=== PATIENT | male | born 1950 | race Caucasian/White ===

== ENCOUNTER 2017-04-29 21:26 | Emergency (ER) | payer MEDICARE ==
[~2017-04-29] VITALS: Ht 172.7 cm; Wt 90.7 kg
[2017-04-29 21:55] VITALS: BP 154/76
--- NOTE | 2017-04-29 22:42 | NUR ---
RADIOLOGY AT BEDSIDE FOR FINGER XR
--- NOTE | 2017-04-29 23:12 | NUR ---
TYE HARRELL AT BEDSIDE FOR DIGITAL BLOCK
[2017-04-29] MEDS ORDERED: LIDOCAINE 1% INJ 50 ML MDV IJ ONE (23:30)
== END 2017-04-29 23:48 | disposition home or self-care (01) ==
LOC: EDSEX 21:31 → ER 21:31
DX: S62.617A Displaced fracture of proximal phalanx of left little finger, initial encounter for closed fracture (principal); F03.90 Unspecified dementia, unspecified severity, without behavioral disturbance, psychotic disturbance, mood disturbance, and anxiety; G20 Parkinson's disease; Z88.4 Allergy status to anesthetic agent; W18.39XA Other fall on same level, initial encounter; Y93.89 Activity, other specified; Y92.89 Other specified places as the place of occurrence of the external cause; Y99.8 Other external cause status
CPT/HCPCS: 26725; 73140; 99284; A4606; Z7610

== ENCOUNTER 2019-07-26 13:48 | Inpatient (IN) | payer MEDICARE, MEDICAID ==
[~2019-07-26] VITALS: Ht 172.7 cm; Wt 56.7 kg
--- NOTE | 2019-07-26 13:50 | NUR ---
PT BIBRA FROM SN[facility] C/O LOW O2 SAT AROUND 80S ON RA, PT IS AAOX0, NOTED RESPIRATORY DISTRESS ON NON REBREATHER MASK AT 15LPM, HOOKED TO MONITOR, KEPT RESTED AND COMFORTABLE, WILL CONTINUE TO MONITOR.
--- NOTE | 2019-07-26 14:02 | NUR ---
AT BEDSIDE FOR EVAL.
--- NOTE | 2019-07-26 14:11 | NUR ---
AT BEDSIDE FOR EVAL.
--- NOTE | 2019-07-26 14:37 | NUR ---
CALLED [facility] TO HURRY UP.
--- NOTE | 2019-07-26 14:40 | NUR ---
BLOOD DRAWN AND RAPID INFLUENZA OBTAINED AND SENT TO LAB.
--- NOTE | 2019-07-26 14:40 | NUR ---
ELECTRONIC COMPONENT PROCESSOR AT BEDSIDE FOR XRAY.
[2019-07-26 14:45] LABS: BASOPHILS # (AUTO) 0.1 /CMM (0.0-0.2); BASOPHILS % (AUTO) 0.6 % (0.0-2.0); EOSINOPHILS % (AUTO) 0.3 % (0.0-6.0); HEMATOCRIT 37 % (39-51); HEMOGLOBIN 12.4 g/dL (13.5-17.5); LYMPHOCYTES % (AUTO) 8.1 % (20.0-44.0); MEAN CORPUSCULAR HGB CONC 34 g/dl (31.0-36.0); MEAN CORPUSCULAR VOLUME 91 fL (80-96); MONOCYTES # (AUTO) 1.3 /CMM (0.1-1.30); MONOCYTES % (AUTO) 10.7 % (2.0-12.0); NEUTROPHILS # (AUTO) 9.5 /CMM (1.8-8.9); NEUTROPHILS % (AUTO) 80.3 % (43.0-81.0); PLATELET COUNT (AUTO) 248 /CMM (150-450); RED BLOOD CELL COUNT(AUTO) 4.05 MIL/uL (4.5-6.0); WHITE BLOOD COUNT (AUTO) 11.9 K/uL (4.3-11.0)
[2019-07-26 14:54] LABS: CALCIUM, SERUM 7.9 mg/dL (8.5-10.1); CARBON DIOXIDE 29 mmol/L (21-32); CHLORIDE 109 mmol/L (98-107); CREATININE 0.7 mg/dL (0.6-1.3); GLUCOSE 119 mg/dL (74-106); POTASSIUM 3.1 mmol/L (3.5-5.1); SODIUM SERUM 147 mmol/L (136-145); UREA NITROGEN, BLOOD 21 mg/dL (7-18)
[2019-07-26 15:00] LABS: ALANINE AMINOTRANSFERASE 27 U/L (12-78); ALBUMIN 1.9 g/dL (3.4-5.0); ALKALINE PHOSPHATASE 110 U/L (46-116); ASPARTATE AMINOTRANSFERASE 66 U/L (15-37); BILIRUBIN,DIRECT 0.2 mg/dL (0.0-0.2); BILIRUBIN,TOTAL 0.5 mg/dL (0.2-1.0); TOTAL PROTEIN, SERUM 6.6 g/dL (6.4-8.2)
--- NOTE | 2019-07-26 15:26 | NUR ---
RT AT BEDSIDE FOR ABG
[2019-07-26] MEDS ORDERED: VANCOMYCIN 1 GM in IV D5W 250 ML IV ONE (15:30)
[2019-07-26] MEDS ORDERED: PIPERACILLIN /TAZOBACTAM 3.375 G in IV D5W 50 ML IV ONE (15:30)
[2019-07-26] MEDS ORDERED: POTASSIUM CL. PREMIX PERIPHER. 200 ML ONE (15:44)
[2019-07-26] MEDS ORDERED: DIVA250T PO (15:53)
[2019-07-26] MEDS ORDERED: CEFT1VIA15 IV (15:53)
[2019-07-26] MEDS ORDERED: METO50TA16 PO (15:53)
[2019-07-26] MEDS ORDERED: LACT1CAP61 PO (15:53)
[2019-07-26] MEDS ORDERED: DOCU-141 PO (15:53)
[2019-07-26] MEDS ORDERED: CRAN3875 PO (15:53)
[2019-07-26] MEDS ORDERED: MIRABEGRON PO (15:53)
[2019-07-26] MEDS ORDERED: SENN-175 PO (15:53)
[2019-07-26] MEDS ORDERED: LISI-603 PO (15:53)
[2019-07-26] MEDS ORDERED: CRAN425C6 PO (15:53)
[2019-07-26] MEDS ORDERED: CARB1TAB21 PO (15:53)
[2019-07-26] MEDS ORDERED: AMIN887L PO (15:53)
[2019-07-26] MEDS ORDERED: ACET325C7 PO (15:53)
[2019-07-26] MEDS ORDERED: POTASSIUM CHLORIDE 20 MEQ TAB.PRT.SR PO ONE (16:00)
[2019-07-26] MEDS ORDERED: POTASSIUM CHLORIDE 10 MEQ/50 ML PREMIXED IVPB FOR PERIPHERAL LINE IV ONE (16:00)
--- NOTE | 2019-07-26 16:09 | NUR ---
CALLED [facility]SE [facility] FOR TELEBED
--- NOTE | 2019-07-26 16:25 | NUR ---
GOT BED 306-2
--- NOTE | 2019-07-26 16:40 | NUR ---
REPORT GIVEN TO JAZMINE MERRITT FOR LYDIA, WITH ONGOING POTASSIUM DRIP AND ANTIBIOTIC.
[2019-07-26] MEDS ORDERED: IV NS 0.9% 1,000 ML BAG IV ONE (17:30)
[2019-07-26 19:30] VITALS: BP 138/77
[2019-07-26 20:00] VITALS: BP 138/77
--- NOTE | 2019-07-26 20:00 | NUR ---
HEEL REDUCERMICROSYSTEMS ENGINEER NOTES RECEIVED PATIENT FROM MORNING SHIFT, ALERT AND ORIENTED X 1. OPENS EYES AND MUMBLES. BREATHING REGULAR AND UNLABORED ON NON-REBREATHER MASK AT 15L/MIN. RIGHT AND LEFT AC G20 IV LINES INTACT AND PATENT, FLUSHING WELL WITH NO BLEEDING OR S/S OF INFILTRATION NOTED. ON COLLISION MECHANIC WITH NSR AT 68bpm. NO S/S OF PAIN/DISCOMFORT OBSERVED AT THIS TIME. PLACED A CALL FOR TO NOTIFY OF PATIENT'S ADMISSION. BED LOW AND LOCKED ON SEMI FOWLERS POSITION. WILL CONTINUE TO MONITOR.
--- NOTE | 2019-07-26 20:00 | NUR ---
HEALTHCARE TRANSLATOR NOTES 1ST BAG OF POTASSIUM CHLORIDE STARTED ON LEFT AC. IV LINE PATENT AND INTACT INFUSING WELL. NO S/S OF PAIN/DISCOMFORT SEEN AT THIS TIME. WILL CONTINUE TO MONITOR.
--- NOTE | 2019-07-26 20:30 | NUR ---
DONKEY DOCTOR NOTES BODY ASSESSMENT DONE, SEEN WITH SACRAL REDNESS. PHOTO TAKEN ATTACHED TO CHART. FOUND A NOTE FROM ER MD THAT [facility] ACCEPTED PATIENT FOR ADMISSION. CALLED [facility] AND SAID THAT WILL ADMIT THE PATIENT. MADE AWARE AND REPORTED PATIENT'S SPO2 OF 88-90% ON NON-REBREATHER ORDERED STAT ABG. WILL CONTINUE TO MONITOR.
--- NOTE | 2019-07-26 21:00 | NUR ---
DIGITAL HARDWARE DESIGN ENGINEER NOTES 2ND BAG OF POTASSIUM CHLORIDE STARTED ON LEFT AC. NO S/S OF PAIN/DISCOMFORT OR DRUG ADVERSE REACTION SEEN AT THIS TIME. WILL CONTINUE TO MONITOR.
[2019-07-26] MEDS ORDERED: IV 1/2NS 1000 ML 1,000 ML IV PRN (21:03)
[2019-07-26] MEDS ORDERED: ENOXAPARIN SODIUM 30 MG/0.3 ML DISP.SYRIN SQ SCH (21:30)
[2019-07-26] MEDS ORDERED: ACETAMINOPHEN 325 MG TABLET PO PRN ×2 (21:30)
[2019-07-26] MEDS ORDERED: ONDANSETRON HCL/PF 4 MG/2 ML VIAL IVP PRN ×2 (21:30)
[2019-07-26] MEDS ORDERED: MAGNESIUM HYDROXIDE 30 ML UDC PO PRN (21:30)
[2019-07-26] MEDS ORDERED: Z GUARD REMEDY 2 OZ OINT TP PRN (21:30)
[2019-07-26] MEDS ORDERED: ZOLPIDEM TARTRATE 5 MG TABLET PO PRN (21:30)
[2019-07-26] MEDS ORDERED: MAG HYDROX/AL HYDROX/SIMETH 30 ML UDC PO PRN (21:30)
[2019-07-26] MEDS ORDERED: HYDROCODONE/APAP 5/325MG 1 EACH TABLET PO PRN (21:30)
[2019-07-26] MEDS: SENNOSIDES 8.6 MG TABLET PO SCH (22:00)
--- NOTE | 2019-07-26 22:20 | NUR ---
FRONT LINE SUPERVISOR NOTES DUE [place] NOT GIVEN, PATIENT REMAINED ALERT AND ORIENTED X 1. UNABLE TO ASSESS SWALLOWING ABILITY. NOTIFIED ON BEDSIDE.
--- NOTE | 2019-07-26 22:30 | NUR ---
INTEGRATION TECHNICIAN NOTES SEEN AND EXAMINED BY , ADMISSION ORDERS IN.
[2019-07-26] MEDS: IV NS 0.9% 1,000 ML IV PRN (22:43)
[2019-07-26] MEDS ORDERED: ZOSYN IVPB 3.375 G in IV D5W 50ml IV SCH (23:00)
[2019-07-26] MEDS: ALBUTEROL HALF STRENGTH 1.25 MG/3 ML VIAL.NEB NEB SCH (23:15)
[2019-07-26] MEDS ORDERED: PIPERACILLIN /TAZOBACTAM 3.375 G VIAL IV ONE (23:21)
[2019-07-27] VITALS (7 sets, daily range): BP systolic 126–152; BP diastolic 69–86
[2019-07-27] MEDS ORDERED: PIPERACILLIN /TAZOBACTAM 2.255 G in IV D5W 50 ML IV SCH ×2
[2019-07-27] MEDS: ALBUTEROL HALF STRENGTH 1.25 MG/3 ML VIAL.NEB NEB SCH ×6 (02:52→23:26)
[2019-07-27] MEDS ORDERED: VANCOMYCIN 1 GM in IV D5W 250ml IV ONE (04:00)
--- NOTE | 2019-07-27 06:25 | NUR ---
SENIOR LEAD JAVA DEVELOPER CLOSING NOTES PATIENT IN BED ALERT AND ORIENTED X 1. OPENS EYES AND MUMBLES. BREATHING REGULAR AND UNLABORED ON NON-REBREATHER MASK AT 15L/MIN. RIGHT AND LEFT AC G20 IV LINES PATENT AND INFUSING WELL. MAINTAINED ON SCRUB TECHNICIAN WITH NSR AT 76bpm. LATEST SPO2 97%. NO S/S OF PAIN/DISCOMFORT OBSERVED AT THIS TIME. BED LOW AND LOCKED ON SEMI FOWLERS POSITION. WILL ENDORSE TO MORNING SHIFT FOR LYDIA.
[2019-07-27 06:56] LABS: CALCIUM, SERUM 7.9 mg/dL (8.5-10.1); CREATININE 0.9 mg/dL (0.6-1.3); MAGNESIUM 2.2 mg/dL (1.8-2.4); PHOSPHORUS 3.4 mg/dL (2.5-4.9); POTASSIUM 3.7 mmol/L (3.5-5.1)
[2019-07-27 07:30] LABS: BASOPHILS % (AUTO) 0.1 % (0.0-2.0); EOSINOPHILS % (AUTO) 0.3 % (0.0-6.0); HEMATOCRIT 39 % (39-51); HEMOGLOBIN 12.8 g/dL (13.5-17.5); LYMPHOCYTES # (AUTO) 1.2 /CMM (0.8-4.8); LYMPHOCYTES % (AUTO) 7.8 % (20.0-44.0); MEAN CORPUSCULAR HGB CONC 33 g/dl (31.0-36.0); MEAN CORPUSCULAR VOLUME 91 fL (80-96); MONOCYTES # (AUTO) 1.6 /CMM (0.1-1.30); MONOCYTES % (AUTO) 10.5 % (2.0-12.0); NEUTROPHILS # (AUTO) 12.5 /CMM (1.8-8.9); NEUTROPHILS % (AUTO) 81.3 % (43.0-81.0); PLATELET COUNT (AUTO) 256 /CMM (150-450); RED BLOOD CELL COUNT(AUTO) 4.24 MIL/uL (4.5-6.0); WHITE BLOOD COUNT (AUTO) 15.3 K/uL (4.3-11.0)
[2019-07-27] MEDS: DIVALPROEX SODIUM 250 MG TABLET.DR PO SCH ×3 (08:00→21:00)
--- NOTE | 2019-07-27 08:00 | NUR ---
RN NOTES RECEIVED PATIENT IN THE BED A/O X1, ON NON VENTURE MASK, OPEN EYES WHEN CALLED NAM OR TOUCHED, PATIENT TELE SR-78, KEEP HOB ELEVATED. PATIENT NPO FOR ASPIRATION PRECAUTION, PATIENT INCONTINENT USING DIAPER, ASSIST TURN AND REPOSTION Q 2 HR, SEE PATIENT VIA HOSPITALIST Dr BETANCUR, NO NEW ORDER AT THIS TIME, CALL LIGHT WITHIN TO REACH, SAFETY PRECAUTION MAINTAINED ALL THE TIME.
[2019-07-27] MEDS: LISINOPRIL (20MG) 20 MG TABLET PO SCH (09:00)
[2019-07-27] MEDS: DOCUSATE SODIUM 100 MG CAPSULE PO SCH ×2 (09:00→16:25)
[2019-07-27] MEDS: METOPROLOL TARTRATE 50 MG TABLET PO SCH (09:00)
[2019-07-27] MEDS: CARBIDOPA/LEVODOPA 25/100 MG 1 UDTAB PO SCH ×4 (09:00→21:00)
[2019-07-27] MEDS: PANTOPRAZOLE 40 MG VIAL IV SCH (09:42)
[2019-07-27] MEDS: PIPERACILLIN /TAZOBACTAM 3.375 G in IV D5W 100 ML IV SCH ×2 (09:43→16:41)
--- NOTE | 2019-07-27 09:47 | NUR ---
rn notes patient with RT at this time, also take ABG per MD order. infusing zosyn 25 mg/ml extended dose .
[2019-07-27 09:49] LABS: ABG BASE EXCESS 2.5 mmol/L; ABG OXYGEN SATURATION 93.7 % (92.0-98.5); ABG PH 7.501 (7.350-7.450); ABG PO2 65.2 mmHg (75.0-100.0); AaDO2 614.8 mmHg; COHb 0.8 % (0.5-1.5); MetHb 0.3 % (0.0-1.5); O2Hb 92.7 % (94.0-97.0); SITE, ABG Right Radial
[2019-07-27 09:49] LABS: ABG BASE EXCESS 5.3 mmol/L; ABG OXYGEN SATURATION 87.2 % (92.0-98.5); ABG PCO2 33.7 mmHg (35.0-45.0); ABG PH 7.533 (7.350-7.450); ABG PO2 49.1 mmHg (75.0-100.0); AaDO2 630.2 mmHg; COHb 0.3 % (0.5-1.5); MetHb 0.3 % (0.0-1.5); O2Hb 86.7 % (94.0-97.0); SITE, ABG Right Radial
--- NOTE | 2019-07-27 10:05 | NUR ---
rn notes Get ABG result [id number],PH-7.52,PCO-30.7, HCO#24.6 result notified fruit grading supervisor Dr Johnson. Seen patient via Dr Johnson waiting for orders.
--- NOTE | 2019-07-27 10:33 | NUR ---
WOUND CARE CONSULT: SEEN PATIENT AT BEDSIDE, PATIENT PRESENTS WITH INCONTINENCE AND IMMOBILITY, NOTED WITH SACRAL SCARRING, PRESENT ON ADMISSION,CURRENT RAY SCALE IS 12,SKIN PROTECTION AND CARE RECOMMENDATION MADE, DISCUSSED WITH NURSING STAFF , WITH AGREED WITH PLAN OF CARE,ISOFLEX ROLANDO BED WILL BE PLACED, WILL SEE PRN
[2019-07-27] MEDS: ACETYLCYSTEINE 10% SOLN 400 MG/4 ML VIAL NEB SCH ×3 (11:30→23:26)
[2019-07-27] MEDS ORDERED: MYRBETRIQ 50 MG PO ONE (12:00)
--- NOTE | 2019-07-27 12:05 | NUR ---
RN NOTES GET ORDER CASSANDRA CONSULTANT Dr QUILES BREATHING TREATMENT, KEEP HOB ELEVATE 35 DEGREE, HIGH FLOW O2 SET UP BY RT ALL THE TIME.
[2019-07-27] MEDS: VANCOMYCIN 1 GM in IV D5W 250 ML IV SCH ×2 (12:33→23:38)
[2019-07-27] MEDS ORDERED: FEE PK DOSING 1 MIN EA MC ONE (13:42)
[2019-07-27] MEDS: IV NS 0.9% 1,000 ML IV PRN (17:19)
--- NOTE | 2019-07-27 18:00 | NUR ---
rn notes PATIENT OPEN EYES WHEN TOUCHED OT CALLING NAME, ON NON -VENTURE MASK 10L, KEEP HOB ELEVATED 35 DEGREE, VIA Dr QUILES ORDER, AND KEEP HIGH FLOW OF O2. HELD SCHEDULED PO MEDICATION, ASSIST PATIENT TURN AND REPOSTION Q 2 HR, . INFUSING NS AT 75 ML/HR INTACT. ENDORSED ONCOMING NURSE FOLLOW PLAN OF CARE.
--- NOTE | 2019-07-27 19:00 | NUR ---
RN medsurg opening notes Pt is resting in bed comfortably. Pt is alert and orientedX1. Respiration is normal in non rebreather 15 L. O2 sat is 98%. No SOB. No S/S of distress noted. IV sites at RAC# 20 is clean, intact, patent and IV sites at LAC# 20 is clean, intact, patent and infusing well NS @ 75 ml/hr. Safety precautions is maintained. Bed at low position, brakes locked, side rails upX3 and call light is within reach. Will continue to monitor.
--- NOTE | 2019-07-27 19:55 | NUR ---
RN medsurg notes Per RT Ray. Pt is on simple mask with 10 L. O2 sat is 97%. No SOB. No S/S of distress noted. Will continue to monitor.
--- NOTE | 2019-07-27 20:35 | NUR ---
RN medsurg notes Pt's temp is 100.4. Informed and called Dr. Melton to get an order. Received order for tylenol supp. 650 Q 4HR prn. Order carried out. Will continue to monitor.
[2019-07-27] MEDS ORDERED: ACETAMINOPHEN 650 MG/SUPP.RECT RC PRN (21:00)
[2019-07-27] MEDS: ENOXAPARIN SODIUM 40 MG/0.4 ML DISP.SYRIN SQ SCH (21:13)
--- NOTE | 2019-07-27 21:14 | NUR ---
RN medsurg notes Pt's temp 100.4. Administered tylenol supp. 650 mg as ordered for fever. Cooling measured is applied. Will continue to monitor.
[2019-07-27] MEDS: SENNOSIDES 8.6 MG TABLET PO SCH (21:27)
--- NOTE | 2019-07-27 22:00 | NUR ---
RN medsurbossman notes Pt's temp is 99.5. Cooling measured is applied. Will continue to monitor.
[2019-07-27] MEDS ORDERED: ENOXAPARIN SODIUM 40 MG/0.4 ML DISP.SYRIN SQ SCH (22:58)
--- NOTE | 2019-07-27 23:15 | NUR ---
RN medsurg notes Informed Dr. Melton about Pt's swallow eval and didn't pass nursing swallow eval. MD is infomed and aware. Will continue to monitor.
--- NOTE | 2019-07-27 23:26 | NUR ---
RT NOTE PT NOTED TO HAVE LARGE AMOUNT OF RED BLOODY SECRETIONS. JAZMINE WEBSTER AND CHARGE NURSE AWARE. WILL CONTINUE TO MONITOR.
--- NOTE | 2019-07-27 23:44 | NUR ---
RN jett notes Pt's temp is 99.3. Will continue to monitor.
--- NOTE | 2019-07-28 | NUR ---
JAZMINE caceres notes Received order to hold lovenox. Order carried out. Charge nurse is aware and informed. Will continue to monitor. Addendum: 07/28/19 at 0325 by MARCO BRYANT RN Received order at 0005
--- NOTE | 2019-07-28 00:02 | NUR ---
RN medsurg notes Informed Dr. Melton about Pt. RT noted blood when suctioned Pt. Pt is also on lovenox 40 mg. No new order received. Will continue to monitor.
[2019-07-28] MEDS: PIPERACILLIN /TAZOBACTAM 3.375 G in IV D5W 100 ML IV SCH ×3 (00:32→16:07)
[2019-07-28] MEDS: ALBUTEROL HALF STRENGTH 1.25 MG/3 ML VIAL.NEB NEB SCH ×6 (04:16→22:47)
--- NOTE | 2019-07-28 06:44 | NUR ---
RN medsurg closing notes Pt is resting in bed comfortably. Respiration is normal in non rebreather 15 L NC. No SOB. No S/S of distress noted. IV sites at RAC# 20 is clean, intact and patent. IV sites LAc# 20 is clean, intact and patent. Kept Pt NPO until swallow eval. VS is stable. Afebrile. Kept Pt clean, dry, and comfortable. Turned and repositioned Q 2HR. Safety precautions is maintained. Bed at low position, brakes locked, side rails upX3 and call light is within reach. HOB elevated. Will endorse to morning nurse for LYDIA.
[2019-07-28 06:49] LABS: BASOPHILS # (AUTO) 0.1 /CMM (0.0-0.2); BASOPHILS % (AUTO) 0.3 % (0.0-2.0); EOSINOPHILS % (AUTO) 0.2 % (0.0-6.0); HEMATOCRIT 38 % (39-51); HEMOGLOBIN 12.7 g/dL (13.5-17.5); LYMPHOCYTES # (AUTO) 1.3 /CMM (0.8-4.8); LYMPHOCYTES % (AUTO) 6.7 % (20.0-44.0); MEAN CORPUSCULAR HGB CONC 33 g/dl (31.0-36.0); MEAN CORPUSCULAR VOLUME 92 fL (80-96); MONOCYTES # (AUTO) 1.6 /CMM (0.1-1.30); MONOCYTES % (AUTO) 8.4 % (2.0-12.0); NEUTROPHILS # (AUTO) 16.3 /CMM (1.8-8.9); NEUTROPHILS % (AUTO) 84.4 % (43.0-81.0); PLATELET COUNT (AUTO) 279 /CMM (150-450); RED BLOOD CELL COUNT(AUTO) 4.17 MIL/uL (4.5-6.0); WHITE BLOOD COUNT (AUTO) 19.3 K/uL (4.3-11.0)
[2019-07-28 07:12] LABS: LYMPHOCYTES % (MANUAL) 5 % (16-48); MONOCYTES % (MANUAL) 5 % (0-11.0); NEUTROPHILS % (MANUAL) 90 (42-76)
--- NOTE | 2019-07-28 07:18 | NUR ---
INITIAL Pt is resting in bed comfortably. Pt is alert and orientedX1. Respiration is normal in non rebreather 15 L. O2 sat is 100%. No SOB. No S/S of distress noted. IV sites at RAC# 20 is clean, intact, patent and IV sites at LAC# 20 is clean, intact, patent and infusing well NS @ 75 ml/hr. Safety precautions is maintained. Bed at low position, brakes locked, side rails upX3 and call light is within reach. Will continue to monitor.
[2019-07-28 07:23] LABS: CALCIUM, SERUM 8.4 mg/dL (8.5-10.1); POTASSIUM 4.1 mmol/L (3.5-5.1)
[2019-07-28 08:00] VITALS: BP 155/72
[2019-07-28] MEDS: ACETYLCYSTEINE 10% SOLN 400 MG/4 ML VIAL NEB SCH ×3 (08:21→22:46)
[2019-07-28] MEDS: MYRBETRIQ 50 MG PO SCH (08:47)
[2019-07-28] MEDS: DIVALPROEX SODIUM 250 MG TABLET.DR PO SCH ×2 (08:47→21:00)
[2019-07-28] MEDS: LISINOPRIL (20MG) 20 MG TABLET PO SCH (08:48)
[2019-07-28] MEDS: CARBIDOPA/LEVODOPA 25/100 MG 1 UDTAB PO SCH ×4 (08:48→21:00)
[2019-07-28] MEDS: METOPROLOL TARTRATE 50 MG TABLET PO SCH (08:48)
[2019-07-28] MEDS: DOCUSATE SODIUM 100 MG CAPSULE PO SCH ×2 (08:49→17:00)
[2019-07-28] MEDS: PANTOPRAZOLE 40 MG VIAL IV SCH (08:50)
[2019-07-28 09:12] LABS: ABG BASE EXCESS 2.4 mmol/L; ABG OXYGEN SATURATION 92.2 % (92.0-98.5); ABG PCO2 30.7 mmHg (35.0-45.0); ABG PH 7.521 (7.350-7.450); ABG PO2 60.5 mmHg (75.0-100.0); AaDO2 477.7 mmHg; COHb 0.3 % (0.5-1.5); MetHb 0.4 % (0.0-1.5); O2Hb 91.6 % (94.0-97.0); SITE, ABG Left Radial; VENT MODE, BG NON REBREATHER
--- NOTE | 2019-07-28 10:07 | NUR ---
SWALLOW SCREEN PT UNABLE TO DO SWALLOW SCREEN DESATURATES TO 87% AND LOWER CALLED [facility] SPOKE WITH GINNA BETANCUR EXPLAINING SITUATION THAT PT UNABLE TO DO SWALLOW SCREEN PA ACKNOWLEDGED EXCHANGE.
[2019-07-28] MEDS: VANCOMYCIN 1 GM in IV D5W 250 ML IV SCH (12:14)
[2019-07-28 16:00] VITALS: BP 146/90
[2019-07-28] MEDS: IV D5/0.45 NACL 1,000 ML IV PRN (16:07)
--- NOTE | 2019-07-28 19:06 | NUR ---
closing Pt is resting in bed comfortably. Respiration is normal in non rebreather 9 L simple mask. No SOB. No S/S of distress noted. IV sites at RAC# 20 is clean, intact and patent. IV sites LAc# 20 is clean, intact and patent. Kept Pt NPO until swallow eval. VS is stable. Afebrile. Kept Pt clean, dry, and comfortable. Turned and repositioned Q 2HR. Safety precautions is maintained. Bed at low position, brakes locked, side rails upX3 and call light is within reach. HOB elevated. Will endorse to pm shift rn for continuity of care. pt unable to o swallow screen today on d5 1/2 ns at 75 mls/hr
[2019-07-28 20:00] VITALS: BP 156/84
--- NOTE | 2019-07-28 20:07 | NUR ---
MS RN NOTES RECEIVED PATIENT AWAKE IN BED RECEIVING BREATHING TX. CALL LIGHT WITHIN REACH. NO FACIAL GRIMACING OR GROANING TO INDICATE PAIN OR DISCOMFORT. PERIPHERAL LINE INTACT AND PATENT. ROOM FREE OF CLUTTER AND BELONGINGS KEPT NEAR BEDSIDE. BED IN LOW LOCK SETTING WITH BED ALARM ON AND FUNCTIONING PROPERLY. WILL CONTINUE TO MONITOR
[2019-07-28] MEDS: VANCOMYCIN 0.75 GM in IV D5W 250 ML IV SCH (20:46)
[2019-07-28] MEDS: ENOXAPARIN SODIUM 40 MG/0.4 ML DISP.SYRIN SQ SCH (21:00)
[2019-07-28] MEDS: SENNOSIDES 8.6 MG TABLET PO SCH (21:13)
--- NOTE | 2019-07-28 21:13 | NUR ---
ALL HS MEDS HELD D/T PT LETHARGIC. JADEN HELD D/T BLOODY SECTIONS WHEN ORAL SUCTIONING.
[2019-07-29] MEDS: PIPERACILLIN /TAZOBACTAM 3.375 G in IV D5W 100 ML IV SCH ×3 (00:56→15:08)
[2019-07-29] MEDS: ALBUTEROL HALF STRENGTH 1.25 MG/3 ML VIAL.NEB NEB SCH ×6 (03:15→23:36)
[2019-07-29] MEDS: VANCOMYCIN 0.75 GM in IV D5W 250 ML IV SCH ×3 (05:16→20:15)
--- NOTE | 2019-07-29 06:44 | NUR ---
MS RN NOTES PATIENT ASLEEP IN BED WITH NO DISTRESS NOTED. PATIENT BREATHING EASILY ON 9L O2 VIA FACE MASK. SPO2 93%, VITALS WNL. HOB MAINTAINED AT 35 DEGREES. RAC PIV INFILTRATED AND REPLACED WITH LFA #24 GAUGE AND TOLERATED WELL. NO ACTIVE BLEEDING NOTED. ORAL SUCTION NEEDED AND NOTED WITH MIN-MODERATE AMT BLOOD TINGED SECRETIONS. IV ATBS GIVEN ORDERED WITH NO ASE. BED IN LOW LOCK SETTING WITH BED ALARM ON AND FUNCTIONING PROPERLY. ALL BELONGINGS KEPT NEAR BEDSIDE. WILL ENDORSE TO ONCOMING SHIFT.
[2019-07-29 06:48] LABS: BASOPHILS % (AUTO) 0.1 % (0.0-2.0); EOSINOPHILS % (AUTO) 0.3 % (0.0-6.0); HEMATOCRIT 36 % (39-51); HEMOGLOBIN 11.8 g/dL (13.5-17.5); LYMPHOCYTES % (AUTO) 4.6 % (20.0-44.0); MEAN CORPUSCULAR HGB CONC 33 g/dl (31.0-36.0); MEAN CORPUSCULAR VOLUME 92 fL (80-96); MONOCYTES # (AUTO) 1.5 /CMM (0.1-1.30); NEUTROPHILS # (AUTO) 18.6 /CMM (1.8-8.9); PLATELET COUNT (AUTO) 266 /CMM (150-450); RED BLOOD CELL COUNT(AUTO) 3.88 MIL/uL (4.5-6.0); WHITE BLOOD COUNT (AUTO) 21.1 K/uL (4.3-11.0)
[2019-07-29 07:10] LABS: CALCIUM, SERUM 7.8 mg/dL (8.5-10.1); CREATININE 0.8 mg/dL (0.6-1.3); POTASSIUM 2.9 mmol/L (3.5-5.1)
--- NOTE | 2019-07-29 07:18 | NUR ---
MS RN NOTES RECEIVED PATIENT ASLEEP IN BED WITH NO DISTRESS NOTED AT THIS TIME. ON 9L O2 VIA FACE MASK. SPO2 93%. HOB MAINTAINED AT 35 DEGREES. IV FLUIDS ON LAC #20 WITH D5 1/2 NS RUNNING @75ML/HR AND LFA #24 GAUGE, SL. PATENT AND INTACT. SAFETY MEASURES IN PLACE, BED IN LOW LOCK SETTING WITH BED ALARM ON. CALL LIGHT WITHIN REACH. WILL CONTINUE TO MONITOR.
[2019-07-29 08:00] VITALS: BP 142/76
[2019-07-29] MEDS: POTASSIUM CL. PREMIX PERIPHER. 50 ML IV SCH ×5 (08:23→13:04)
[2019-07-29] MEDS: PANTOPRAZOLE 40 MG VIAL IV SCH (08:24)
[2019-07-29] MEDS: ACETYLCYSTEINE 10% SOLN 400 MG/4 ML VIAL NEB SCH ×3 (08:24→23:37)
[2019-07-29] MEDS: CARBIDOPA/LEVODOPA 25/100 MG 1 UDTAB PO SCH ×4 (09:00→21:00)
[2019-07-29] MEDS: LISINOPRIL (20MG) 20 MG TABLET PO SCH (09:00)
[2019-07-29] MEDS: DIVALPROEX SODIUM 250 MG TABLET.DR PO SCH ×2 (09:00→21:00)
[2019-07-29] MEDS: MYRBETRIQ 50 MG PO SCH (09:00)
[2019-07-29] MEDS: DOCUSATE SODIUM 100 MG CAPSULE PO SCH ×2 (09:00→17:00)
[2019-07-29] MEDS: METOPROLOL TARTRATE 50 MG TABLET PO SCH (09:00)
--- NOTE | 2019-07-29 09:15 | NUR ---
RN NOTES STILL HOLD PO MED, PATIENT IS LETHARGIC. UNABLE TO SWALLOW. MD AWARE. WILL CONTINUE TO MONITOR.
[2019-07-29 13:10] LABS: APPEARANCE,URINE SL CLOUDY (CLEAR); BILIRUBIN,URINE SMALL (NEGATIVE); BLOOD, URINE LARGE Ery/uL (NEGATIVE); COLOR,URINE DARK YELLO (YELLOW); KETONES,URINE NEGATIVE (NEGATIVE); LEUKOCYTE ESTERASE ,URINE NEGATIVE (NEGATIVE); NITRITE, URINE NEGATIVE (NEGATIVE); PH,URINE 5.5 (5.0-8.0); PROTEIN,URINE 30 mg/dl (NEGATIVE); UGLUCOSE NEGATIVE (NEGATIVE)
[2019-07-29 13:43] LABS: BACTERIA,URINE None seen /HPF (None Seen); RBC,URINE 51-80 /HPF (0-2); SQUAMOUS EPITHELIAL CELL,UR Few /HPF (None Seen); WBC,URINE 0-2 /HPF (0-3)
[2019-07-29] MEDS: IV D5/0.45 NACL 1,000 ML IV PRN (14:45)
[2019-07-29 15:57] VITALS: BP 134/76
--- NOTE | 2019-07-29 18:30 | NUR ---
MS RN NOTES PATIENT IN BED RESTING COMFORTABLY. WITH NO DISTRESS NOTED THROUGHOUT THE SHIFT. ON 6L O2 VIA NC. SPO2 98%. HOB MAINTAINED AT 35 DEGREES. IV FLUIDS ON LAC #20 WITH D5 1/2 NS RUNNING @75ML/HR AND LFA #24 GAUGE, SL. PATENT AND INTACT. SAFETY MEASURES IN PLACE, BED IN LOW LOCK SETTING WITH BED ALARM ON. CALL LIGHT WITHIN REACH. WILL ENDORSE TO FRAUD INVESTIGATOR NURSE FOR LYDIA.
[2019-07-29 20:00] VITALS: BP 155/74
--- NOTE | 2019-07-29 20:03 | NUR ---
MS RN NOTES PATIENT RECEIVED IN BED, EASILY AWAKEN BY TOUCH. PATIENT NON-VERBAL. PATIENT ON NASAL CANNULA, TOLERATING 6 LITERS, NO SIGNS OF RESPIRATORY DISTRESS, NO SIGNS OF SHORTNESS OF BREATH, WITH EVEN NON-LABORED BREATHING. PATIENT SKIN DRY, CLEAN, AND WARM. IV ACCESS IN PLACE, INTACT, AND PATENT, RUNNING D5 1/2 NS AT 75 ml/hr. PROVIDED COMFORT MEASURES TO PATIENT. SAFETY PRECAUTIONS IN PLACE WITH BED LOCKED, BED ALARM ON, BILATERAL SIDE RAILS UP, BED IN THE LOWEST POSITION, AND CALL LIGHT WITHIN EASY REACH OF PATIENT. WILL CONTINUE TO MONITOR.
[2019-07-29] MEDS: ENOXAPARIN SODIUM 40 MG/0.4 ML DISP.SYRIN SQ SCH (21:08)
--- NOTE | 2019-07-29 21:15 | NUR ---
MS RN NOTES HELD ALL PO MEDICATIONS DUE TO PATIENT UNABLE TO SWALLOW. WILL CONTINUE TO MONITOR PATIENT.
[2019-07-29] MEDS: SENNOSIDES 8.6 MG TABLET PO SCH (22:00)
[2019-07-30] MEDS: PIPERACILLIN /TAZOBACTAM 3.375 G in IV D5W 100 ML IV SCH ×3 (00:06→16:06)
[2019-07-30] MEDS: VANCOMYCIN 0.75 GM in IV D5W 250 ML IV SCH ×3 (03:04→20:16)
[2019-07-30] MEDS: ALBUTEROL HALF STRENGTH 1.25 MG/3 ML VIAL.NEB NEB SCH ×6 (03:35→22:45)
--- NOTE | 2019-07-30 06:41 | NUR ---
MS RN NOTES PATIENT IN BED, NON-VERBAL, EASILY AWAKEN BY LIGHT TOUCH. PATIENT ON SIMPLE FACE MASK, 10 LITERS, TOLERATING SETTINGS WELL WITH O2 SATURATION OF 93%. PATIENT PRESENTS EVEN NON-LABORED BREATHING, WITH NON-PRODUCTIVE COUGH. PATIENT SKIN KEPT CLEAN, DRY AND IS INTACT. IV ACCESS IN PLACE AND INTACT, RIGHT HAND 20 GAUGE SL, AND LAC 20 GAUGE RUNNING 75 ml/hr d5 1/2 NS. PROVIDED COMFORT MEASURES. PATIENT PRESENTS NO PAIN OR DISCOMFORT AT THIS TIME. SAFETY PRECAUTIONS IN PLACE WITH BED IN THE LOWEST POSITION, BED LOCKED, BED ALARM ON, BILATERAL SIDE RAILS UP, AND CALL LIGHT WITHIN EASY REACH. WILL ENDORSE LYDIA TO UPCOMING AM NURSE.
[2019-07-30 06:42] LABS: BASOPHILS # (AUTO) 0.1 /CMM (0.0-0.2); BASOPHILS % (AUTO) 0.4 % (0.0-2.0); EOSINOPHILS % (AUTO) 0.9 % (0.0-6.0); HEMATOCRIT 31 % (39-51); HEMOGLOBIN 10.4 g/dL (13.5-17.5); LYMPHOCYTES # (AUTO) 1.3 /CMM (0.8-4.8); LYMPHOCYTES % (AUTO) 9.6 % (20.0-44.0); MEAN CORPUSCULAR HGB CONC 33 g/dl (31.0-36.0); MEAN CORPUSCULAR VOLUME 92 fL (80-96); MONOCYTES % (AUTO) 7.3 % (2.0-12.0); NEUTROPHILS # (AUTO) 11.4 /CMM (1.8-8.9); NEUTROPHILS % (AUTO) 81.8 % (43.0-81.0); PLATELET COUNT (AUTO) 263 /CMM (150-450)
[2019-07-30 06:58] LABS: BILIRUBIN,TOTAL 1.9 mg/dL (0.2-1.0); CALCIUM, SERUM 7.2 mg/dL (8.5-10.1); CREATININE 0.8 mg/dL (0.6-1.3); MAGNESIUM 2.1 mg/dL (1.8-2.4); PHOSPHORUS 2.4 mg/dL (2.5-4.9); TOTAL PROTEIN, SERUM 5.7 g/dL (6.4-8.2)
[2019-07-30 07:03] LABS: ALBUMIN 1.3 g/dL (3.4-5.0)
--- NOTE | 2019-07-30 07:44 | NUR ---
MS RN OPENING NOTES RECEIVED PATIENT IN BED, ASLEEP. PATIENT ON OXYGEN VIA SIMPLE MASK AT 10 L. SATURATING IN THE LOW 90S. RT JUST CAME TO SEE THE PATIENT. NO SIGNS OF DISTRESS AT THIS TIME. NO SIGNS OF PAIN SUCH FACIAL GRIMACING OR MOANING. LAC GAUGE # 20 PRESENT AND INTACT. R HAND GAUGE # 20 PRESENT AND FLUSHING WELL. SAFETY PRECAUTIONS IN PLACE: BED IN LOW POSITION AND LOCKED, RAILS UP X 2, CALL LIGHT WITHIN REACH. WILL CONTINUE TO MONITOR PATIENT.
[2019-07-30 08:00] VITALS: BP 162/72
[2019-07-30] MEDS: POTASSIUM CL. PREMIX PERIPHER. 50 ML IV SCH ×5 (08:06→13:45)
[2019-07-30] MEDS: ACETYLCYSTEINE 10% SOLN 400 MG/4 ML VIAL NEB SCH ×3 (08:13→22:45)
[2019-07-30] MEDS: DOCUSATE SODIUM 100 MG CAPSULE PO SCH ×2 (09:00→16:27)
[2019-07-30] MEDS: PANTOPRAZOLE 40 MG VIAL IV SCH (09:00)
[2019-07-30] MEDS: METOPROLOL TARTRATE 50 MG TABLET PO SCH (09:00)
[2019-07-30] MEDS: MYRBETRIQ 50 MG PO SCH (09:00)
[2019-07-30] MEDS: CARBIDOPA/LEVODOPA 25/100 MG 1 UDTAB PO SCH ×4 (09:00→21:00)
[2019-07-30] MEDS: DIVALPROEX SODIUM 250 MG TABLET.DR PO SCH ×2 (09:00→21:00)
[2019-07-30] MEDS: LISINOPRIL (20MG) 20 MG TABLET PO SCH (09:00)
--- NOTE | 2019-07-30 09:50 | NUR ---
MS RN NOTES AT THIS TIME PATIENT UNABLE TO SWALLOW WELL MEDS WELL. PATIENT IS NOT FULLY ALERT/ NOT ABLE TO COMMUNICATE CLEARLY. CHARGE NURSE AND MD NOTIFIED AND AWARE. MD CALLED PATIENT'S SON REGARDING THE MATTER AND POSSIBLE INITIATION OF TUBE FEEDING. WILL F/U AND CONTINUE TO MONITOR PATIENT.
[2019-07-30] MEDS ORDERED: K PHOS NEUTRAL 250 MG TABLET PO ONE (11:30)
--- NOTE | 2019-07-30 18:49 | NUR ---
MS RN CLOSING NOTES PATIENT IN BED, AWAKE BUT DOES NOT RESPOND TO ANY QUESTIONS. PATIENT ON OXYGEN VIA SIMPLE MASK AT 10 L. RT TRIED TO TITRATE DOWN BUT O2 DROPPING. SATURATING NOW AT 98%. NO SIGNS OF DISTRESS AT THIS TIME. NO SIGNS OF PAIN SUCH FACIAL GRIMACING OR MOANING. LAC GAUGE # 20 PRESENT AND INTACT INFUSING NS AT 75MLS/HR. R HAND GAUGE # 20 PRESENT AND FLUSHING WELL. BREATHING TREATMENT PROVIDED BY RT DURING THE DAY. PATIENT CLEAN AND SKIN TAKEN CARE OF. SAFETY PRECAUTIONS IN PLACE: BED IN LOW POSITION AND LOCKED, RAILS UP X 2, HOB ELEVATED AT 30 DEGREES, CALL LIGHT WITHIN REACH. WILL ENDORSE TO PRIVACY DIRECTOR NURSE.
--- NOTE | 2019-07-30 19:42 | NUR ---
MS RN NOTES PATIENT RECEIVED IN BED, RESTING COMFORTABLY, NO PAIN OR DISCOMFORT PRESENT, NO MOANING, GRUNTING OR FACIAL GRIMACE. PATIENT IS AWAKE, NON-VERBAL. PATIENT ON SIMPLE FACE MASK, 10 LITERS, TOLERATING SETTING WITH O2 SATURATION OF 97%. IV ACCESS IN PLACE, PATENT AND INTACT, ON LAC 20 GAUGE, AND RIGHT HAND, SL 20 GAUGE. HOB IN SEMI-FOWLERS POSITION. SAFETY PRECAUTIONS IN PLACE WITH BED IN THE LOWEST POSITION, BED LOCKED, BED ALARM ON, BILATERAL SIDE RAILS UP, AND CALL LIGHT WITHIN EASY REACH. WILL CONTINUE TO MONITOR PATIENT.
[2019-07-30 20:00] VITALS: BP 155/80
[2019-07-30] MEDS: ENOXAPARIN SODIUM 40 MG/0.4 ML DISP.SYRIN SQ SCH (21:57)
[2019-07-30] MEDS: SENNOSIDES 8.6 MG TABLET PO SCH (21:59)
--- NOTE | 2019-07-30 22:02 | NUR ---
MS RN NOTES PATIENT AT THIS TIME IS UNABLE TO SWALLOW PO MEDICATION. HELD ALL PO MEDICATIONS, MD AWARE AND CHARGE NURSE MADE AWARE OF NON-ADMINISTERING PO MEDICATIONS. WILL CONTINUE TO MONITOR PATIENT.
[2019-07-31 00:01] VITALS: BP 138/82
[2019-07-31] MEDS: PIPERACILLIN /TAZOBACTAM 3.375 G in IV D5W 100 ML IV SCH ×3 (00:09→16:37)
[2019-07-31] MEDS: ALBUTEROL HALF STRENGTH 1.25 MG/3 ML VIAL.NEB NEB SCH ×6 (03:38→23:25)
[2019-07-31] MEDS: VANCOMYCIN 0.75 GM in IV D5W 250 ML IV SCH ×2 (04:06→12:18)
--- NOTE | 2019-07-31 06:16 | NUR ---
MS RN NOTES PATIENT IN BED SLEEPING, EASILY AWAKEN BY NAME AND LIGHT TOUCH AND NON-VERBAL. PATIENT ON SIMPLE FACE MASK, TOLERATING 10 LITERS, O2 SATURATION AT 98%. PATIENT PRESENTS NO SIGNS OF RESPIRATORY DISTRESS, NO SIGNS OF SOB, EVEN AND NON-LABORED BREATHING. PATIENT SKIN KEPT CLEAN AND DRY. IV IN PLACE, PATENT AND DRY. PATIENT PRESENT NO PAIN OR DISCOMFORT. ALL PATIENT'S NEEDS MET AND PROVIDED COMFORT MEASURES TO THE PATIENT. SAFETY PRECAUTIONS IN PLACE WITH BED IN THE LOWEST POSITION, BILATERAL SIDE RAILS UP, BED LOCKED, BED ALARM ON AND CALL LIGHT WITHIN EASY REACH. WILL ENDORSE LYDIA TO UPCOMING AM NURSE.
--- NOTE | 2019-07-31 07:20 | NUR ---
MS RN OPENING NOTES RECEIVED PATIENT IN BED, ASLEEP. PATIENT ON OXYGEN VIA SIMPLE MASK AT 10 L. SATURATING IN THE HIGH 90S. NO SIGNS OF ACUTE DISTRESS AT THIS TIME. NO SIGNS OF PAIN SUCH FACIAL GRIMACING OR MOANING. LAC GAUGE # 20 PRESENT AND INTACT. R HAND GAUGE # 20 PRESENT AND INFUSING NS AT 75 MLS/HR. SAFETY PRECAUTIONS IN PLACE: BED IN LOW POSITION AND LOCKED, RAILS UP X 2, HOB ELEVATED AT 45%, CALL LIGHT WITHIN REACH. WILL CONTINUE TO MONITOR PATIENT.
[2019-07-31 07:25] LABS: BASOPHILS % (AUTO) 0.3 % (0.0-2.0); EOSINOPHILS % (AUTO) 0.6 % (0.0-6.0); HEMATOCRIT 32 % (39-51); HEMOGLOBIN 10.8 g/dL (13.5-17.5); LYMPHOCYTES # (AUTO) 1.2 /CMM (0.8-4.8); LYMPHOCYTES % (AUTO) 7.7 % (20.0-44.0); MEAN CORPUSCULAR HGB CONC 33 g/dl (31.0-36.0); MEAN CORPUSCULAR VOLUME 91 fL (80-96); MONOCYTES # (AUTO) 1.2 /CMM (0.1-1.30); NEUTROPHILS # (AUTO) 12.5 /CMM (1.8-8.9); NEUTROPHILS % (AUTO) 83.4 % (43.0-81.0); PLATELET COUNT (AUTO) 254 /CMM (150-450); RED BLOOD CELL COUNT(AUTO) 3.56 MIL/uL (4.5-6.0)
[2019-07-31] MEDS: ACETYLCYSTEINE 10% SOLN 400 MG/4 ML VIAL NEB SCH ×3 (07:29→23:25)
[2019-07-31 07:52] LABS: CALCIUM, SERUM 7.5 mg/dL (8.5-10.1); CREATININE 0.9 mg/dL (0.6-1.3); PHOSPHORUS 2.5 mg/dL (2.5-4.9); POTASSIUM 3.1 mmol/L (3.5-5.1)
[2019-07-31 08:00] VITALS: BP 141/78
[2019-07-31] MEDS: DIVALPROEX SODIUM 250 MG TABLET.DR PO SCH ×2 (08:25→22:25)
[2019-07-31] MEDS: PANTOPRAZOLE 40 MG VIAL IV SCH (08:25)
[2019-07-31] MEDS: MYRBETRIQ 50 MG PO SCH (08:25)
[2019-07-31] MEDS: DOCUSATE SODIUM 100 MG CAPSULE PO SCH ×2 (08:25→16:38)
[2019-07-31] MEDS: METOPROLOL TARTRATE 50 MG TABLET PO SCH (08:25)
[2019-07-31] MEDS: LISINOPRIL (20MG) 20 MG TABLET PO SCH (08:26)
[2019-07-31] MEDS: CARBIDOPA/LEVODOPA 25/100 MG 1 UDTAB PO SCH ×4 (08:26→22:25)
--- NOTE | 2019-07-31 08:26 | NUR ---
MS RN NOTES PATIENT UNABLE TO SWALLOW PO MEDICATION OR ANY FOOD. HELD ALL PO MEDICATIONS, MD AWARE OF NON-ADMINISTERING PO MEDICATIONS. WILL CONTINUE TO MONITOR PATIENT.
[2019-07-31] MEDS: POTASSIUM CL. PREMIX PERIPHER. 50 ML IV SCH ×4 (11:14→15:47)
[2019-07-31] MEDS ORDERED: POTASSIUM CL. PREMIX PERIPHER. 50 ML IV SCH (12:00)
[2019-07-31] MEDS: IV D5/0.45 NACL 1,000 ML IV PRN (14:25)
[2019-07-31 16:00] VITALS: BP 166/71
--- NOTE | 2019-07-31 18:42 | NUR ---
MS RN CLOSING NOTES PATIENT IN BED, AWAKE, CONFUSED, AT TIMES AGGRESSIVE WHEN BEING CHANGED AND CLEANED. PATIENT ON OXYGEN VIA SIMPLE MASK AT 7 L. RT TITRATED PATIENT FROM 10 TO 7 L. SATURATING IN THE HIGH 90S. NO SIGNS OF ACUTE DISTRESS AT THIS TIME. NO SIGNS OF PAIN SUCH FACIAL GRIMACING OR MOANING. LAC GAUGE # 20 PRESENT AND INTACT. R HAND GAUGE # 20 PRESENT AND INFUSING NS AT 75 MLS/HR. SAFETY PRECAUTIONS REMAIN IN PLACE: BED IN LOW POSITION AND LOCKED, RAILS UP X 2, HOB ELEVATED AT 45%, CALL LIGHT WITHIN REACH. WILL ENDORSE TO SEWER LINE REPAIRER NURSE.
--- NOTE | 2019-07-31 19:40 | NUR ---
RN OPENING NOTES RECEIVED REPORT FROM Bianka MITCHELL RN. FOUND Pt ASLEEP IN BED, RESPIRATIONS EVEN AND UNLABORED WITH EQUAL CHEST RISE AND FALL. PER MURALI RN Pt IS A/OX0; IS CONFUSED AND AWAKE FROM TIME TO TIME BUT DOES NOT FOLLOW COMMANDS. PER KENDRA, Pt WAS TOO LETHARGIC AND WAS UNABLE TO DO HER OWN SWALLOW EVAL. WILL TRY TO FOLLOW UP. ON TELE MONITOR, WITH TELE READING SR 79. IV ACCESS ON R HAND #20G @TKO & LAC #18G IVF D51/2NS @75ML/HR, INFUSING WELL. SAFETY MEASURES IN PLACE. BED LOW, LOCKED, HOB ELEVATED, SIDE RAILS UP, CALL LIGHT AND BEDSIDE TABLE WITHIN REACH. BED ALARM ON. WILL CONTINUE TO MONITOR Pt's CONDITION AND SAFETY THROUGHOUT THE NIGHT.
[2019-07-31 20:00] VITALS: BP 136/79
[2019-07-31] MEDS: ENOXAPARIN SODIUM 40 MG/0.4 ML DISP.SYRIN SQ SCH (22:05)
[2019-07-31] MEDS: SENNOSIDES 8.6 MG TABLET PO SCH (22:25)
--- NOTE | 2019-07-31 22:25 | NUR ---
RN NOTES Pt IS MORE AWAKE NOW THAN BEFORE PER DAYSHIFT RN REPORT. PER DAYSHIFT RN KENDRA, Pt WAS TOO LETHARGIC TO SEE IF HE CAN SWALLOW FINE WITH WATER. SINCE Pt WAS AWAKE NOW, I ADMINISTERED THICKENED WATER TO Pt AND HE WAS ABLE TO TOLERATE WELL WITH NO COUGHING. WILL ADMINISTER MEDS CRUSHED WITH THICKENER.
[2019-08-01] VITALS (7 sets, daily range): BP systolic 124–159; BP diastolic 66–89
[2019-08-01] MEDS: PIPERACILLIN /TAZOBACTAM 3.375 G in IV D5W 100 ML IV SCH ×3 (00:13→16:30)
[2019-08-01] MEDS: VANCOMYCIN 1 GM in IV D5W 250 ML IV SCH ×2 (00:14→13:19)
[2019-08-01] MEDS: ALBUTEROL HALF STRENGTH 1.25 MG/3 ML VIAL.NEB NEB SCH ×6 (03:54→23:46)
[2019-08-01 07:05] LABS: CALCIUM, SERUM 7.6 mg/dL (8.5-10.1); CREATININE 0.8 mg/dL (0.6-1.3); POTASSIUM 3.3 mmol/L (3.5-5.1)
[2019-08-01] MEDS: ACETYLCYSTEINE 10% SOLN 400 MG/4 ML VIAL NEB SCH ×3 (08:03→23:46)
--- NOTE | 2019-08-01 08:10 | NUR ---
ms rn received on bed, awake, on o2 mask, saturating 93%,no distress noted, respirations, nonlabored, no s/s of pain, son on bedside, all needs attended.
--- NOTE | 2019-08-01 08:19 | NUR ---
PLACED ON AEROSOL MASK @ 2LPM O2 FLOW DUE TO MOUTH BREATING. PT SPO2 93 T0 99% Addendum: 08/01/19 at 0820 by ROBERT JHA RT Amended: Links added.
--- NOTE | 2019-08-01 08:25 | NUR ---
RN CLOSING NOTES NO SIGNIFICANT CHANGES IN Pt's CONDITION. Pt IS RESTING COMFORTABLY IN BED. NO S/S OF ACUTE DISTRESS OR SOB NOTED. ALL NEEDS MET AND ATTENDED TO. SAFETY MEASURES IN PLACE. ENDORSED TO DAYSHIFT RN FOR Pt's LYDIA.
--- NOTE | 2019-08-01 09:15 | NUR ---
ms rn swallow eval done, waiting for result.
[2019-08-01] MEDS: CARBIDOPA/LEVODOPA 25/100 MG 1 UDTAB PO SCH ×4 (09:42→21:50)
[2019-08-01] MEDS: PANTOPRAZOLE 40 MG VIAL IV SCH (09:42)
[2019-08-01] MEDS: MYRBETRIQ 50 MG PO SCH (09:42)
[2019-08-01] MEDS: DIVALPROEX SODIUM 250 MG TABLET.DR PO SCH ×2 (09:42→21:50)
[2019-08-01] MEDS: DOCUSATE SODIUM 100 MG CAPSULE PO SCH ×2 (09:44→16:48)
[2019-08-01] MEDS: METOPROLOL TARTRATE 50 MG TABLET PO SCH (09:44)
[2019-08-01] MEDS: LISINOPRIL (20MG) 20 MG TABLET PO SCH (09:44)
[2019-08-01] MEDS ORDERED: POTASSIUM CHLORIDE 20 MEQ TAB.PRT.SR PO SCH (11:00)
--- NOTE | 2019-08-01 11:00 | NUR ---
ms rn patient's swallow eval did not pass, son is aware, might consider gt placement.
--- NOTE | 2019-08-01 12:00 | NUR ---
ms rn was seen by marcelino nino w/ orders made and karen montoya.
[2019-08-01] MEDS: IV D5/0.45 NACL 1,000 ML IV PRN (13:21)
--- NOTE | 2019-08-01 18:14 | NUR ---
ms rn on bed, no distress noted w/ saturation at 95%.
--- NOTE | 2019-08-01 19:40 | NUR ---
RN OPENING NOTES RECEIVED REPORT FROM DAYSHIFT JAZMINE MERRITT. FOUND Pt AWAKE, RESTING IN BED, RESPIRATIONS EVEN AND UNLABORED WITH EQUAL CHEST RISE AND FALL. Pt IS A/OX0; IS CONFUSED AND AWAKE FROM TIME TO TIME BUT DOES NOT FOLLOW COMMANDS. PER JAZMINE MERRITT, Pt FAILED SWALLOW EVAL. Pt IS ON TELE MONITOR, WITH TELE READING SR 67. IV ACCESS ON R HAND #20G & #18G IVF D51/2NS @75ML/HR, INFUSING WELL. SAFETY MEASURES IN PLACE. BED LOW, LOCKED, HOB ELEVATED, SIDE RAILS UP & BED ALARM ON. WILL CONTINUE TO MONITOR Pt's CONDITION AND SAFETY THROUGHOUT THE NIGHT.
[2019-08-01] MEDS: SENNOSIDES 8.6 MG TABLET PO SCH (21:50)
[2019-08-01] MEDS: ENOXAPARIN SODIUM 40 MG/0.4 ML DISP.SYRIN SQ SCH (21:52)
[2019-08-02] MEDS: PIPERACILLIN /TAZOBACTAM 3.375 G in IV D5W 100 ML IV SCH ×3 (00:21→15:18)
[2019-08-02 00:38] VITALS: BP 129/72
[2019-08-02] MEDS: ALBUTEROL HALF STRENGTH 1.25 MG/3 ML VIAL.NEB NEB SCH ×6 (03:52→23:56)
[2019-08-02 06:30] LABS: BASOPHILS # (AUTO) 0.1 /CMM (0.0-0.2); BASOPHILS % (AUTO) 0.5 % (0.0-2.0); EOSINOPHILS % (AUTO) 1.3 % (0.0-6.0); HEMATOCRIT 32 % (39-51); HEMOGLOBIN 10.7 g/dL (13.5-17.5); LYMPHOCYTES # (AUTO) 1.4 /CMM (0.8-4.8); LYMPHOCYTES % (AUTO) 12.5 % (20.0-44.0); MEAN CORPUSCULAR HGB CONC 34 g/dl (31.0-36.0); MEAN CORPUSCULAR VOLUME 90 fL (80-96); MONOCYTES # (AUTO) 0.9 /CMM (0.1-1.30); MONOCYTES % (AUTO) 7.9 % (2.0-12.0); NEUTROPHILS # (AUTO) 8.5 /CMM (1.8-8.9); NEUTROPHILS % (AUTO) 77.8 % (43.0-81.0); PLATELET COUNT (AUTO) 330 /CMM (150-450); RED BLOOD CELL COUNT(AUTO) 3.54 MIL/uL (4.5-6.0); WHITE BLOOD COUNT (AUTO) 10.9 K/uL (4.3-11.0)
--- NOTE | 2019-08-02 06:37 | NUR ---
RN CLOSING NOTES NO SIGNIFICANT CHANGES IN Pt's CONDITION. Pt IS RESTING COMFORTABLY IN BED. NO S/S OF ACUTE DISTRESS OR SOB NOTED. ALL NEEDS MET AND ATTENDED TO. SAFETY MEASURES IN PLACE. TELE READING SR 64. PER RT MAYUR: Pt WAS PLACED ON VENTURI MASK @6L WITH FIO2 28%. WILL ENDORSE TO DAYSHIFT RN FOR Pt's LYDIA.
[2019-08-02 06:55] LABS: CALCIUM, SERUM 7.7 mg/dL (8.5-10.1); CREATININE 0.9 mg/dL (0.6-1.3); MAGNESIUM 2.1 mg/dL (1.8-2.4); PHOSPHORUS 2.9 mg/dL (2.5-4.9); POTASSIUM 3.2 mmol/L (3.5-5.1)
--- NOTE | 2019-08-02 07:20 | NUR ---
MS RN NOTES RECEIVED PATIENT IN BED. ALERT AND ORIENTED X1. HOB ELEVATED. ON VENTURI MASK @ 6L CARISSA WELL. DENIES ANY C/O PAIN NOR DISCOMFORT AT THIS TIME. SUCTIONED PATIENT AND OBTAINED SMALL THICK SECRETIONS. IVF INFUSING WELL ORDERED WITH IV ACCESS SITE INTACT AND PATENT TO RFA AND LEFT AC. BED IN LOWEST POSITION, LOCKED. BED SIDERAILS UP X2. CALL LIGHT WITHIN REACH.
[2019-08-02] MEDS: ACETYLCYSTEINE 10% SOLN 400 MG/4 ML VIAL NEB SCH ×3 (07:52→23:56)
[2019-08-02 08:00] VITALS: BP 142/77
[2019-08-02] MEDS: PANTOPRAZOLE 40 MG VIAL IV SCH (08:47)
[2019-08-02] MEDS: CARBIDOPA/LEVODOPA 25/100 MG 1 UDTAB PO SCH ×4 (08:47→21:24)
[2019-08-02] MEDS: DOCUSATE SODIUM 100 MG CAPSULE PO SCH ×2 (08:47→16:38)
[2019-08-02] MEDS: DIVALPROEX SODIUM 250 MG TABLET.DR PO SCH ×2 (08:47→21:24)
[2019-08-02] MEDS: METOPROLOL TARTRATE 50 MG TABLET PO SCH (08:48)
[2019-08-02] MEDS: LISINOPRIL (20MG) 20 MG TABLET PO SCH (08:48)
[2019-08-02] MEDS: MYRBETRIQ 50 MG PO SCH (08:51)
[2019-08-02] MEDS: POTASSIUM CHLORIDE 20 MEQ TAB.PRT.SR PO SCH ×2 (11:18→12:25)
[2019-08-02 16:00] VITALS: BP 146/70
[2019-08-02] MEDS: IV D5/0.45 NACL 1,000 ML IV PRN (18:57)
--- NOTE | 2019-08-02 19:00 | NUR ---
MS RN NOTES PATIENT RESTING COMFORTABLY IN BED. ALERT AND ORIENTED X1. HOB ELEVATED. ON VENTURI MASK @ 6L CARISSA WELL. DENIES ANY C/O PAIN NOR DISCOMFORT AT THIS TIME. RFA # #20 INTACT INFUSING D5 1/2 NS @ 75ML/HR CARISSA WELL. LEFT AC # 18 INTACT AND PATENT SL. BED IN LOWEST POSITION, LOCKED. BED SIDERAILS UP X2. CALL LIGHT WITHIN REACH. IN NO APPARENT DISTRESS.
--- NOTE | 2019-08-02 19:36 | NUR ---
MS RN NOTES PATIENT RECEIVED IN BED, AWAKE, ALERT AND ORIENTED X 1. PATIENT ON VENTURI MASK AT 6 L, TOLERATING SETTING WITH O2 OF 94%. PATIENT PRESENTS NO SIGNS OF SOB, NO RESPIRATORY DISTRESS, AND WITH NON-LABORED BREATHING. PATIENT IV ACCESS INTACT, PATENT, AND IN PLACE, RUNNING D5 1/2 NS AT 75 mls/hr. PROVIDED COMFORT MEASURES TO THE PATIENT. SAFETY PRECAUTIONS IN PLACE WITH BED IN THE LOWEST POSITION, HOB IN SEMI-FOWLERS, BILATERAL SIDE RAILS UP, BED LOCKED, BED ALARM ON, CALL LIGHT WITHIN EASY REACH. WILL CONTINUE TO MONITOR PATIENT.
[2019-08-02 20:00] VITALS: BP 137/77
[2019-08-02] MEDS: SENNOSIDES 8.6 MG TABLET PO SCH (21:23)
[2019-08-02] MEDS: ENOXAPARIN SODIUM 40 MG/0.4 ML DISP.SYRIN SQ SCH (21:25)
[2019-08-03] MEDS: PIPERACILLIN /TAZOBACTAM 3.375 G in IV D5W 100 ML IV SCH ×3 (00:11→16:24)
[2019-08-03] MEDS: ALBUTEROL HALF STRENGTH 1.25 MG/3 ML VIAL.NEB NEB SCH ×5 (04:10→19:20)
[2019-08-03 06:52] LABS: BASOPHILS # (AUTO) 0.1 /CMM (0.0-0.2); BASOPHILS % (AUTO) 0.8 % (0.0-2.0); EOSINOPHILS % (AUTO) 1.6 % (0.0-6.0); HEMATOCRIT 38 % (39-51); HEMOGLOBIN 12.5 g/dL (13.5-17.5); LYMPHOCYTES # (AUTO) 1.5 /CMM (0.8-4.8); LYMPHOCYTES % (AUTO) 21.3 % (20.0-44.0); MEAN CORPUSCULAR HGB CONC 33 g/dl (31.0-36.0); MEAN CORPUSCULAR VOLUME 92 fL (80-96); MONOCYTES # (AUTO) 0.6 /CMM (0.1-1.30); MONOCYTES % (AUTO) 8.5 % (2.0-12.0); NEUTROPHILS # (AUTO) 4.9 /CMM (1.8-8.9); NEUTROPHILS % (AUTO) 67.8 % (43.0-81.0); PLATELET COUNT (AUTO) 321 /CMM (150-450); RED BLOOD CELL COUNT(AUTO) 4.08 MIL/uL (4.5-6.0); WHITE BLOOD COUNT (AUTO) 7.2 K/uL (4.3-11.0)
--- NOTE | 2019-08-03 06:58 | NUR ---
MS RN NOTES PATIENT IN BED, RESTING, IN SEMI-FOWLERS POSITION. PATIENT TOLERATING VENTURI MASK 6L, 97% NO SIGNS OF SOB, RESPIRATORY DISTRESS PRESENT, AND WITH EVEN NON-LABORED BREATHING. PATIENT AWAKE TO LIGHT TOUCH AND NAME, ALERT AND ORIENTED X 1. PATIENT SKIN KEPT CLEAN AND DRY. IV ACCESS IN PLACE, INTACT, AND PATENT RUNNING D5 1/2 NS AT 75 mls/hr. PROVIDED COMFORT MEASURES TO PATIENT. SAFETY PRECAUTIONS IN PLACE WITH BED IN THE LOWEST POSITION, BED LOCKED, BED ALARM ON, BILATERAL SIDE-RAILS UP, AND CALL LIGHT WITHIN EASY REACH. WILL ENDORSE LYDIA TO UPCOMING DAYSHIFT NURSE.
[2019-08-03] MEDS: ACETYLCYSTEINE 10% SOLN 400 MG/4 ML VIAL NEB SCH ×2 (07:27→15:35)
[2019-08-03 07:30] LABS: CALCIUM, SERUM 7.9 mg/dL (8.5-10.1); CREATININE 0.8 mg/dL (0.6-1.3); MAGNESIUM 2.2 mg/dL (1.8-2.4); PHOSPHORUS 2.9 mg/dL (2.5-4.9); POTASSIUM 4.6 mmol/L (3.5-5.1)
--- NOTE | 2019-08-03 07:55 | NUR ---
MS RN OPENING NOTES RECEIVED PT AWAKE IN BED IN NO CUTE SIGNS OF DISTRESS. HOB ELEVATED. ALERT BUT CONFUSED. ON VENTURI MASK AT 6LPM, TOLERATING WELL, RESPIRATIONS EVEN AND UNLABORED WITH EQUAL CHEST RISE AND FALL. PIV'S ON RFA #20G & LAC #18G, IVF OF D5 1/2NS @75ML/HR INFUSING WELL TO RFA, NO S/S OF INFILTRATIONS NOTED. SAFETY MEASURES IN PLACE: BED LOW, LOCKED WITH SIDE RAILS UP X2. BED ALARM ON. WILL CONTINUE TO MONITOR PT ACCORDINGLY.
[2019-08-03 08:00] VITALS: BP 160/81
--- NOTE | 2019-08-03 08:29 | NUR ---
RN NOTES RESPIRATORY CAME AND SUCTIONED PT AND PLACED PT ON 02 VIA N/C AT 5LPM.TOLERATING WELL WITH SP02 NOTED AT 95%. WILL CONTINUE TO MONITOR
[2019-08-03] MEDS: DIVALPROEX SODIUM 250 MG TABLET.DR PO SCH (08:31)
[2019-08-03] MEDS: PANTOPRAZOLE 40 MG VIAL IV SCH (08:31)
[2019-08-03] MEDS: METOPROLOL TARTRATE 50 MG TABLET PO SCH (08:31)
[2019-08-03] MEDS: DOCUSATE SODIUM 100 MG CAPSULE PO SCH ×2 (08:31→16:24)
[2019-08-03] MEDS: LISINOPRIL (20MG) 20 MG TABLET PO SCH (08:31)
[2019-08-03] MEDS: CARBIDOPA/LEVODOPA 25/100 MG 1 UDTAB PO SCH ×3 (08:32→16:24)
[2019-08-03] MEDS: MYRBETRIQ 50 MG PO SCH (08:34)
--- NOTE | 2019-08-03 09:41 | NUR ---
RN NOTES SWALLOW EVALUATION DONE AGAIN THIS MORNING AND PT ABLE TO TOLERATE APPLE SAUCE W/O ASPIRATION. ST PLACED PT ON PUREED DIET WITH HONEY THICK LIQUIDS CONSISTENCY. WILL CONTINUE TO MONITOR
[2019-08-03 16:19] VITALS: BP 137/78
--- NOTE | 2019-08-03 19:51 | NUR ---
RN DISCHARGED NOTES PT DISCHARGED TO [facility] AND WILL GO TO BED 3356 IN STABLE CONDITION. PT IS A/O X2 AND VERBALLY RESPONSIVE. PT NOTED WITH PERIOD OF CONFUSION AND FORGETFULNESS DURING THE DAY, REDIRECTED AND EMOTIONAL SUPPORT GIVEN. PT TOLERATED CURRENT DIET OF PUREED HONEY THICK LIQUIDS WITH NO ASPIRATION NOTED. V/S TAKEN, STABLE AND RECORDED. PHOTOS OF SKIN ISSUES TAKEN AND FILED ON CHART. BELONGINGS ACCOUNTED FOR AND SIGNED FORM. IV ACCESS ON REMOVED LFA G#18 WITH NO ACTIVE BLEEDING NOTED, DRY DRESSING APPLIED. REPORT AND DISCHARGED INSTRUCTIONS GIVEN TO [facility] RN MAMU. PT'S SON SALVADOR [place] INFORMED OF PT'S DISCHARGE TO [facility]. PT LEFT UNIT ON 02 VIA N/C @ 5LPM IN NO ACUTE SIGNS OF DISTRESS 1950 VIA YOANDY ACCOMPANIED BY 2 EMT'S. MD AND CHARGE NURSE AWARE OF DISCHARGE
== END 2019-08-03 19:50 | DRG 871 ==
LOC: ER 13:50 → TELE 16:44 → MED 07-27 12:03 → TELE 07-31 15:00 → MED 08-02 11:42
PROVIDERS: ADMIT Student in an Organized Health Care Education/Training Program; ATTEND Registered Nurse
DX: A41.9 Sepsis, unspecified organism (principal); J15.6 Pneumonia due to other Gram-negative bacteria; J96.21 Acute and chronic respiratory failure with hypoxia; E43 Unspecified severe protein-calorie malnutrition; G92 Toxic encephalopathy; N17.0 Acute kidney failure with tubular necrosis; E87.0 Hyperosmolality and hypernatremia; E87.4 Mixed disorder of acid-base balance; E86.0 Dehydration; E87.6 Hypokalemia; Z66 Do not resuscitate; R65.20 Severe sepsis without septic shock; Z79.899 Other long term (current) drug therapy; Z88.4 Allergy status to anesthetic agent; G20 Parkinson's disease; F31.9 Bipolar disorder, unspecified; F02.80 Dementia in other diseases classified elsewhere, unspecified severity, without behavioral disturbance, psychotic disturbance, mood disturbance, and anxiety; Y95 Nosocomial condition; R13.10 Dysphagia, unspecified; N32.81 Overactive bladder; N20.0 Calculus of kidney; M19.90 Unspecified osteoarthritis, unspecified site; I10 Essential (primary) hypertension; H26.9 Unspecified cataract; D64.9 Anemia, unspecified
CPT/HCPCS: 31720; 36415; 36600; 71045-TC; 80048-TC; 80053-TC; 80076-TC; 80202-TC; 81000-TC; 82803-TC; 82962-TC; 83605-TC; 83735-TC; 84100-TC; 84484-TC; 85025-TC; 85730-TC; 87040-TC; 87070-TC; 87081-TC; 87086-TC; 92526; 92611-TC; 94760-TC; 94762-TC; 94799-TC; C9113; G0378; J1650; J2543; J3370; J3480; J3490; J7030; J7050; J7060

== ENCOUNTER 2019-12-26 16:14 | Inpatient (IN) | payer MEDICARE, OTHER ==
[~2019-12-26] VITALS: Ht 152.4 cm; Wt 60.3 kg
[~2019-12-26 16:14] MED LIST: ACET325C7 PO; AMIN887L PO; CARB1TAB21 PO; CEFT1VIA15 IV; CRAN3875 PO; CRAN425C6 PO; DIVA250T PO; DOCU-141 PO; LACT1CAP61 PO; LISI-603 PO; METO50TA16 PO; MIRABEGRON PO; SENN-175 PO
[2019-12-26] MEDS ORDERED: ENOX40DI SQ (16:48)
[2019-12-26] MEDS ORDERED: ALBU2.5V38 IH (16:48)
[2019-12-26] MEDS ORDERED: CRAN3875 PO (16:48)
[2019-12-26] MEDS ORDERED: VALP250S4 PO (16:48)
[2019-12-26] MEDS ORDERED: MAGN400O6 PO (16:48)
[2019-12-26] MEDS ORDERED: ALBU2.5V13 IH (16:48)
[2019-12-26] MEDS ORDERED: HYDR-4076 PO (16:48)
[2019-12-26] MEDS ORDERED: ACETAMINOPHEN 650 MG/SUPP.RECT RC ONE ×2 (17:00→17:20)
[2019-12-26 17:16] LABS: BASOPHILS # (AUTO) 0.1 /CMM (0.0-0.2); BASOPHILS % (AUTO) 0.7 % (0.0-2.0); EOSINOPHILS % (AUTO) 0.5 % (0.0-6.0); HEMATOCRIT 42 % (39-51); HEMOGLOBIN 13.8 g/dL (13.5-17.5); LYMPHOCYTES % (AUTO) 8.2 % (20.0-44.0); MEAN CORPUSCULAR HGB CONC 33 g/dl (31.0-36.0); MEAN CORPUSCULAR VOLUME 91 fL (80-96); MONOCYTES # (AUTO) 1.3 /CMM (0.1-1.30); MONOCYTES % (AUTO) 11.4 % (2.0-12.0); NEUTROPHILS # (AUTO) 9.3 /CMM (1.8-8.9); NEUTROPHILS % (AUTO) 79.2 % (43.0-81.0); PLATELET COUNT (AUTO) 337 /CMM (150-450); WHITE BLOOD COUNT (AUTO) 11.8 K/uL (4.3-11.0)
[2019-12-26 17:26] LABS: CALCIUM, SERUM 8.5 mg/dL (8.5-10.1); CARBON DIOXIDE 29 mmol/L (21-32); CHLORIDE 101 mmol/L (98-107); CREATININE 0.9 mg/dL (0.6-1.3); GLUCOSE 131 mg/dL (74-106); POTASSIUM 4.4 mmol/L (3.5-5.1); SODIUM SERUM 136 mmol/L (136-145); UREA NITROGEN, BLOOD 21 mg/dL (7-18)
[2019-12-26] MEDS ORDERED: IV NS 0.9% 100 ML IV ONE (17:30)
--- NOTE | 2019-12-26 17:30 | NUR ---
[facility] FROM [facility]F TO ER BED 6. AAOX1. NOT IN RESP DISTRES BUT NOTED RONCHI AND CRACKLES. BROUGHT IN FOR FEVER THAT WAS NOTED @ 102.4. PER FACILITY REPORT GIVEN BY JAZMINE TOMPKINS STATEMENT DISTRIBUTION CLERK. PT WAS GIVEN TYLENOL 650MG PO X 1 @ 1510. UPON ASSESSMENT, PT WAS NOTED WITH RECTAL TEMP OF 101.1. MD WAS AT THE BEDSIDE FOR EVAL. ORDERS RECEIVED NOTED AND CARRIED OUT. IV LINE ESTABLISHED ON RFA18G, BLOOD DRAWN AND GIVEN TO FINAL ARMATURE TESTER AT BEDSIDE.
[2019-12-26 17:35] LABS: APPEARANCE,URINE Clear (CLEAR); BILIRUBIN,URINE Negative (NEGATIVE); BLOOD, URINE Trace-intact Ery/uL (NEGATIVE); COLOR,URINE Yellow (YELLOW); KETONES,URINE Trace (NEGATIVE); LEUKOCYTE ESTERASE ,URINE Trace (NEGATIVE); NITRITE, URINE Negative (NEGATIVE); PROTEIN,URINE Negative (NEGATIVE); UGLUCOSE Negative (NEGATIVE)
[2019-12-26 17:43] LABS: ALANINE AMINOTRANSFERASE 22 U/L (12-78); ALBUMIN 3.3 g/dL (3.4-5.0); ALKALINE PHOSPHATASE 90 U/L (46-116); ASPARTATE AMINOTRANSFERASE 28 U/L (15-37); BILIRUBIN,DIRECT 0.1 mg/dL (0.0-0.2); BILIRUBIN,TOTAL 0.2 mg/dL (0.2-1.0); TOTAL PROTEIN, SERUM 7.5 g/dL (6.4-8.2)
[2019-12-26 17:46] LABS: BACTERIA,URINE Few /HPF (None Seen); SQUAMOUS EPITHELIAL CELL,UR Few /HPF (None Seen)
--- NOTE | 2019-12-26 17:48 | NUR ---
PAGED NICK IRAHETA
[2019-12-26] MEDS ORDERED: VANCOMYCIN 1 GM in IV D5W 250 ML IV ONE (18:00)
[2019-12-26] MEDS ORDERED: IV NS 0.9% 1,000 ML IV ONE (18:00)
[2019-12-26] MEDS ORDERED: CEFEPIME 1 GM in IV D5W 50 ML IV ONE (18:00)
--- NOTE | 2019-12-26 20:55 | NUR ---
report given to shari frank for wan
[2019-12-26 21:05] VITALS: BP 142/63
--- NOTE | 2019-12-26 21:05 | NUR ---
LOAN REVIEW ANALYST OPENING NOTES RECEIVED PATIENT FROM ER VIA GURNEY SAFELY TRANSFERRED TO BED, AWAKE NON VERBAL , EYES OPEN, RESPONSIVE TO TACTILE STIMULI, ON 4 L VIA NC TOLERATING WELL O2 SAT 99%. NOTED WITH COUGH AND FEVER RECTAL TEMPERATURE TAKEN 101.7, COOLING MEASURES INITIATED. IV SITE TO RIGHT FA #19 G SL. ORDERS NOTED AND CARRIED OUT. BODY ASSESSMENT DONE, NO BELONGINGS PRESENT,SKIN ASSESSMENT PICTURES TAKEN, PLACED IN CHART, ORIENTED TO STAFF AND CALL LIGHT AND KEPT WITHIN REACH, ALL NEEDS ATTENDED AT THIS TIME, WILL CARRY OUR ORDERS AND GIVE TYLENOL FOR FEVER. Addendum: 12/27/19 at 0224 by CIRO HAMILTON RN ON CARDIAC TEL MONITOR SR 95
--- NOTE | 2019-12-26 21:10 | NUR ---
PT TRANSPORTED TO UNIT ON GURNEY WITH EMT AND RN AT BEDSIDE W/ ACLS PROTOCOL. NAD NOTED DURING TRANSPORT.
[2019-12-26] MEDS ORDERED: LORAZEPAM INJ 2 MG/ML VIAL IV PRN (22:30)
[2019-12-26] MEDS ORDERED: ACETAMINOPHEN 325 MG TABLET PO PRN ×2 (23:00)
[2019-12-26] MEDS ORDERED: ALBUTEROL FS 2.5 MG/3 ML VIAL.NEB NEB PRN (23:30)
[2019-12-26] MEDS: ACETAMINOPHEN 650 MG/SUPP.RECT RC PRN (23:33)
--- NOTE | 2019-12-26 23:33 | NUR ---
pattern fitter notes rectal temp taken 101.7 cooling measure initiated, ice packs rendered, room kept cool. tylenol suppository given will continue to monitor.
[2019-12-27] VITALS: BP_SYST 151; BP_SYST 166; BP_DIAS 76; BP_DIAS 78
--- NOTE | 2019-12-27 00:30 | NUR ---
NAILHEAD PUNCHER NOTES COOLING MEASURE CONTINUED REASSESSED RECTAL TEMP 100.7, DECREASING WILL CONTINUE TO MONITOR.
--- NOTE | 2019-12-27 01:00 | NUR ---
SENIOR LIVING SALES COUNSELOR NOTES RECTAL TEMP TAKEN REMAINS AT 100. CALLED AWAITING FOR CALL BACK TO NOTIFY OF TEMPERATURE, COOLING MEASURES CONTINUED,
[2019-12-27] MEDS ORDERED: CEFEPIME 1 GM in IV D5W 50 ML IV ONE (02:00)
--- NOTE | 2019-12-27 02:22 | NUR ---
CREDIT NEGOTIATOR NOTES TYLENOL EFFECTIVE RECTAL TEMP 99.1 WILL CONTINUE COOLING MEASURES.
[2019-12-27] MEDS ORDERED: CEFEPIME 1 GM VIAL ONE (02:45)
--- NOTE | 2019-12-27 03:19 | NUR ---
MMD UNIT TEACHER NOTES RECEIVED MEDICATION CEFEPIME WILL GIVE AT THIS TIME, ORDERED.
[2019-12-27 04:00] VITALS: BP 139/95
[2019-12-27 04:14] VITALS: BP 139/95
--- NOTE | 2019-12-27 06:28 | NUR ---
CUSTOMER CARE ASSISTANT CLOSING NOTES PATIENT AWAKE NON VERBAL , EYES OPEN, RESPONSIVE TO TACTILE STIMULI, ON 4 L VIA NC TOLERATING WELL O2 SAT 99%. NOTED WITH COUGH AND FEVER THROUGHOUT SHIFT RECTAL TEMPERATURE TAKEN TYLENOL EFFECTIVE COOLING MEASURES EFFECTIVE TEMP 99.1 IV SITE TO RIGHT FA #18 G SL. ORDERS NOTED AND CARRIED OUT. CALL LIGHT KEPT WITHIN REACH, , REPOSITIONED Q 2HRS, OFFLOADED HEELS, ALL NEEDS ATTENDED AT THIS TIME, WILL CONTINUE TO MONITOR , ATTEND TO NEEDS AND ENDORSE TO NEXT SHIFT, ALL DUE MEDS GIVEN ORDERED, ON CARDIAC TEL MONITOR SR 88. SUCTION EQUIPMENT SET UP IN PLACE.
[2019-12-27 06:48] LABS: CALCIUM, SERUM 8.8 mg/dL (8.5-10.1); CREATININE 0.9 mg/dL (0.6-1.3); POTASSIUM 4.3 mmol/L (3.5-5.1)
[2019-12-27 06:57] LABS: BASOPHILS % (AUTO) 0.3 % (0.0-2.0); HEMATOCRIT 41 % (39-51); HEMOGLOBIN 13.9 g/dL (13.5-17.5); LYMPHOCYTES # (AUTO) 1.6 /CMM (0.8-4.8); LYMPHOCYTES % (AUTO) 13.5 % (20.0-44.0); MEAN CORPUSCULAR HGB CONC 34 g/dl (31.0-36.0); MEAN CORPUSCULAR VOLUME 91 fL (80-96); MONOCYTES # (AUTO) 1.5 /CMM (0.1-1.30); MONOCYTES % (AUTO) 12.7 % (2.0-12.0); NEUTROPHILS # (AUTO) 8.5 /CMM (1.8-8.9); NEUTROPHILS % (AUTO) 73.5 % (43.0-81.0); PLATELET COUNT (AUTO) 284 /CMM (150-450); RED BLOOD CELL COUNT(AUTO) 4.54 MIL/uL (4.5-6.0); WHITE BLOOD COUNT (AUTO) 11.6 K/uL (4.3-11.0)
--- NOTE | 2019-12-27 07:30 | NUR ---
mariela LUCERO from [facility], provided with covid results, after verifying patient information
--- NOTE | 2019-12-27 07:43 | NUR ---
PUBLIC HEALTH PROFESSOR OPENING NOTE PATIENT IN BED RESTING COMFORTABLY. PATIENT IN NO ACUTE DISTRESS. NO SOB NOTED. PATIENT BREATHING IS EVEN AND UNLABORED. PATIENT AWAKE, EYES OPEN , NON VERBAL, AND RESPONSIVE TO TACTILE STIMULI. PATIENT ON CARDIAC MONITORING READING SINUS RHYTHM HR 93. PATIENT WITH 1:1 SITTER. PATIENT BED IS LOCKED AND IN LOWEST POSITION. CALL LIGHT WITHIN REACH. WILL CONTINUE TO MONITOR.
[2019-12-27] MEDS ORDERED: Z GUARD REMEDY 2 OZ OINT TP PRN (08:00)
--- NOTE | 2019-12-27 08:05 | NUR ---
WOUND CARE CONSULT: PT PRESENTS VERY THIN AND BONY WITH REDNESS TO TOPS OF EARS (CONTINUOUS OXYGEN IN USE), VERY BONY SACRAL AREA WITH BLANCHABLE REDNESS AND DUSKY COLOR TO FEET , PRESENT ON ADMISSION. RECOMMENDATIONS MADE FOR SKIN PROTECTION. DISCUSSED WITH NURSING STAFF. MARGAUX ISOFLEX LOW AIRLOSS BED TO BE PLACED. WILL SEE PRN. VIDALES IN AGREEMENT WITH PLAN OF CARE. Addendum: 12/27/19 at 0807 by GIL CORDON WNDNU Amended: Links added.
[2019-12-27] MEDS ORDERED: FEE PK DOSING 1 MIN EA MC ONE (08:10)
[2019-12-27] MEDS ORDERED: MAGNESIUM HYDROXIDE 30 ML UDC PO PRN (09:00)
[2019-12-27] MEDS ORDERED: ALBUTEROL FS 2.5 MG/3 ML VIAL.NEB IH PRN (09:00)
[2019-12-27] MEDS ORDERED: hydrALAZINE HCL 25 MG TABLET PO PRN (09:00)
[2019-12-27] MEDS: VANCOMYCIN 0.75 GM in IV D5W 250 ML IV SCH ×2 (09:23→20:45)
[2019-12-27] MEDS: VALPROIC ACID 250 MG/5 ML UDC PO SCH ×2 (09:27→17:13)
[2019-12-27] MEDS: METOPROLOL TARTRATE 50 MG TABLET PO SCH (09:27)
[2019-12-27] MEDS: DOCUSATE SODIUM 100 MG CAPSULE PO SCH ×2 (09:27→17:13)
[2019-12-27] MEDS: CARBIDOPA/LEVODOPA 25/100 MG 1 UDTAB PO SCH ×4 (09:27→21:00)
[2019-12-27] MEDS: LISINOPRIL (20MG) 20 MG TABLET PO SCH (09:28)
[2019-12-27] MEDS: Z GUARD REMEDY 2 OZ OINT TP SCH (09:29)
[2019-12-27] MEDS ORDERED: ALBUTEROL HALF STRENGTH 1.25 MG/3 ML VIAL.NEB NEB SCH (09:30)
[2019-12-27] MEDS: IPRATROPIUM NEB FS 0.5 MG/2.5 ML AMPUL.NEB NEB SCH ×5 (09:30→23:11)
[2019-12-27] MEDS: ENOXAPARIN SODIUM 40 MG/0.4 ML DISP.SYRIN SQ SCH (09:30)
--- NOTE | 2019-12-27 11:04 | NUR ---
B2B SALES CONSULTANT NOTE PATIENT FAILED SWALLOW EVALUATION BY SPEECH THERAPIST JANNA. PER HER RECOMMENDATIONS TO KEEP PATIENT NPO EXCEPT MEDS. SPOKE WITH DR. IRAHETA AND PER MD GUERRA TO KEEP PATIENT NPO EXCEPT MEDS. PER HE DOES NOT WANT ANY EXCESS TUBES FOR FEEDING. INFORMED MD THAT GIL HAT LACER RECOMMENDED CONDOM CATH. PER MD GUERRA FOR ORDER OF CONDOM CATH.
[2019-12-27 12:00] VITALS: BP 147/71
[2019-12-27] MEDS ORDERED: ALBUTEROL FS 2.5 MG/0.5 ML VIAL.NEB IH SCH (13:30)
[2019-12-27] MEDS ORDERED: ALBUTEROL FS 2.5 MG/3 ML VIAL.NEB NEB SCH (13:30)
[2019-12-27] MEDS: CEFEPIME 2 GM in IV D5W 100 ML IV SCH (13:54)
[2019-12-27 15:41] LABS: ABG BASE EXCESS -2.2 mmol/L; ABG OXYGEN SATURATION 93.9 % (92.0-98.5); ABG PCO2 30.6 mmHg (35.0-45.0); ABG PH 7.449 (7.350-7.450); ABG PO2 64.8 mmHg (75.0-100.0); COHb 0.1 % (0.5-1.5); MetHb 0.1 % (0.0-1.5); O2Hb 93.7 % (94.0-97.0)
--- NOTE | 2019-12-27 16:01 | NUR ---
INDUSTRIAL ECONOMICS PROFESSOR NOTE SPOKE WITH DR. IRAHETA IN THE MORNING REGARDING PATIENT CODE STATUS WITH POLST STATING DNR STATUS. PER MD FOLLOW UP WITH SON WHO IS PERSON TO NOTIFY. CALLED TO SON SALVADOR CALLOWAY TO VERIFY POLST FROM 2017 AND CONFIRM IF PATIENT IS STILL TO BE MAINTAINED DNR STATUS BASED ON POLST. PER SON SALVADOR HE STATES " YES I SIGNED OFF ON THE POLST A LONG TIME AGO, HE IS TO STAY DNR STATUS". CHARGE NURSE KARAN IS AWARE.
--- NOTE | 2019-12-27 16:05 | NUR ---
LONGWALL FOREMAN NOTE PATIENT IN BED RESTING COMFORTABLY. PATIENT IN NO ACUTE DISTRESS. NO SOB NOTED. PATIENT BREATHING IS EVEN AND UNLABORED. POLST IS IN THE CHART, MAINTAINED DNR STATUS. REPORT GIVEN TO JENS RN FOR TRANSFER OF CARE. ENDORSED ALL CARE TO JENS LUCERO FOR LYDIA.
--- NOTE | 2019-12-27 16:06 | NUR ---
DOCK OPERATOR NOTES Received Patient resting in bed. A/O x 1. VS stable with no acute distress. Breathing even and unlabored on room air with no respiratory distress. Denies pain. No signs and symptoms of pain. Condom Cath in place and patent. 18g PIV on RFA intact, patent and flushing well. Safety precautions in place. Bed locked and set to lowest position with side rails x 2 up. All needs rendered at this time. Call light within reach. Will continue to monitor.
--- NOTE | 2019-12-27 19:28 | NUR ---
TONE ARTIST APPRENTICE CLOSING NOTES Received Patient resting in bed. A/O x 1. VS stable with no acute distress. Breathing even and unlabored on room air with no respiratory distress. Denies pain. No signs and symptoms of pain. Telemonitor in place and patent reading SR with HR-71. Condom Cath in place and patent. 18g PIV on RFA intact, patent and flushing well. Safety precautions in place. Bed locked and set to lowest position with side rails x 2 up. All needs rendered at this time. Call light within reach. Will endorse plan of care to oncoming shift.
[2019-12-27 20:00] VITALS: BP 117/56
--- NOTE | 2019-12-27 20:00 | NUR ---
TELE/RN OPENING NOTES RECEIVED PATIENT IN BED, LETHARGIC ON 4 LITER OXYGEN WITH SATURATION OF 99%, PATIENT REQUIRE EXTENSIVE ASSISTANCE IN ALL ADLS. PATIENT DISORIENTED AND INCOHERENT.IN BED, WITH CONDOM CATHETER DRAINING MINIMAL URINE. ON COOLING MEASURES FOR ELEVATED TEMPERATURE, WILL MONITOR FOR ANY CHANGES.
--- NOTE | 2019-12-27 20:10 | NUR ---
TELE/BELT DRESSER MONITOR ON SINUS RYTHMN. AT 80
--- NOTE | 2019-12-27 20:30 | NUR ---
TELE/RN NOTES SR 80'S
[2019-12-27] MEDS: SENNOSIDES 8.6 MG TABLET PO SCH (22:00)
[2019-12-27] MEDS: ACETAMINOPHEN 650 MG/SUPP.RECT RC PRN (23:54)
--- NOTE | 2019-12-28 | NUR ---
TELE/RN NOTES SINUS RHYTHM 85.
[2019-12-28] MEDS: CEFEPIME 2 GM in IV D5W 100 ML IV SCH ×2 (01:00→15:48)
--- NOTE | 2019-12-28 01:08 | NUR ---
RE CHECK BODY TEMP AT 99.7 DEG F.
[2019-12-28 04:00] VITALS: BP 105/52
[2019-12-28] MEDS: IPRATROPIUM NEB FS 0.5 MG/2.5 ML AMPUL.NEB NEB SCH ×6 (05:03→23:00)
--- NOTE | 2019-12-28 05:58 | NUR ---
RECHECK BODY TEMPERATURE 98.2 DEG F.
--- NOTE | 2019-12-28 06:16 | NUR ---
304-2 tele/rn notes PATIENT SLEPT DURING THE NIGHT, ON OXYGEN VIA NC AT 4 LITER, SUCTION NEEDED, WITH BREATHING TX DONE BY RT. PATIENT LETHARGIC, MONITORED FOR CHANGES, FEVER MONITOIRNG, ASPIRATION PRECAUTION FOLLOWED. BED LOCKED, WILL ENDORSE TO AM RN FOR LYDIA. ON IV ANTIBIOTIC THERAPY.
--- NOTE | 2019-12-28 07:30 | NUR ---
TELE/RN NOTE THE PATIENT IS RECEIVED IN BED. THE PATIENT IS AWAKE. ALERT TO SELF AND VERBALLY RESPONSIVE. DENIES PAIN. RECEIVING OXYGEN AT 4L/MIN VIA NASAL CANNULA. RESPIRATION REGULAR AND UNLABORED. THE PATIENT IS IN NO APPARENT DISTRESS. EXTERNAL TELE BOX READING IS SR 81. PATIENT IS NPO EXCEPT MEDS. RFA G 18 PATENT AND SALINE LOCKED. BED LOW AND LOCKED. SIDE RAILS UP X3. CALL LIGHT WITHIN REACH. SITTER AT THE BEDSIDE. WILL CONTINUE TO MONITOR.
[2019-12-28] MEDS: VANCOMYCIN 0.75 GM in IV D5W 250 ML IV SCH ×2 (08:31→19:52)
[2019-12-28] MEDS: LISINOPRIL (20MG) 20 MG TABLET PO SCH (09:19)
[2019-12-28] MEDS: CARBIDOPA/LEVODOPA 25/100 MG 1 UDTAB PO SCH ×4 (09:19→20:10)
[2019-12-28] MEDS: DOCUSATE SODIUM 100 MG CAPSULE PO SCH ×2 (09:19→16:41)
[2019-12-28] MEDS: VALPROIC ACID 250 MG/5 ML UDC PO SCH ×2 (09:20→16:41)
[2019-12-28] MEDS: METOPROLOL TARTRATE 50 MG TABLET PO SCH (09:20)
[2019-12-28] MEDS: ENOXAPARIN SODIUM 40 MG/0.4 ML DISP.SYRIN SQ SCH (09:27)
[2019-12-28] MEDS: Z GUARD REMEDY 2 OZ OINT TP SCH (09:28)
--- NOTE | 2019-12-28 10:58 | NUR ---
TELE/RN NOTE DR IRAHETA IS MADE AWARE OF SPEECH THERAPIST`S`S REQUEST TO DO VIDEO SWALLOW. THE ORDER IS OBTAINED. NOTED AND CARRIED OUT. SPEECH THERAPIST IS MADE AWARE.
--- NOTE | 2019-12-28 11:10 | NUR ---
TELE/RN NOTE THE PATIENT HAS CONDOM CATH.
[2019-12-28 12:00] VITALS: BP 93/53
[2019-12-28 16:00] VITALS: BP 141/82
--- NOTE | 2019-12-28 18:46 | NUR ---
TELE/RN NOTE THE PATIENT ALERT AND ORIENTED X1. DENIES PAIN. RECEIVING OXYGEN AT 3L/MIN VIA NASAL CANNULA AND SATURATION IS AT 93%. RESPIRATION REGULAR AND UNLABORED. IN NO APPARENT DISTRESS. RFA G 18 PATENT AND SALINE LOCKED. BED LOW AND LOCKED. SIDE RAILS UP X3. CALL LIGHT WITHIN REACH. SITTER AT THE BEDSIDE. WILL ENDORSE TO CATH LAB TECH. Addendum: 12/28/19 at 1906 by KELTON HALL RN TELE/CRIMINAL JUSTICE SOCIAL WORKER BOX READING IS SR 75.
--- NOTE | 2019-12-28 19:22 | NUR ---
TELE/RN OPENING NOTES RECEIVED PATIENT IN BED, HOB ELEVATED, ON OXYGEN VIA NC AT 4 LITER, RESPIRATIONS EVEN AND UNLABORED, SKIN WARM TO TOUCH, WITH CONDOM CATHETER DRAINING YELLOW COLOR URINE, REQUIRE SUCTION NEEDED AND WITH RT. BED LOCKED, CALL LIGHTS WITHIN REACH. ON NPO EXCEPT MED, ON ANTIBIOTIC THERAPY AND TO FOLLOW UP ANY CHANGES, VIDEO SWALLOW ORDER FOR BEATRIZ. RECEIVED ENDORSEMENT FROM AM RN FOR LYDIA,
[2019-12-28 19:57] VITALS: BP 142/63
--- NOTE | 2019-12-28 20:10 | NUR ---
TELE/RN NOTES SR 97
[2019-12-28] MEDS: SENNOSIDES 8.6 MG TABLET PO SCH (22:00)
[2019-12-28] MEDS: ACETAMINOPHEN 650 MG/SUPP.RECT RC PRN (23:33)
--- NOTE | 2019-12-28 23:36 | NUR ---
RECEIVED PATIENT WITH ELEVATED FEVER OF 100.3, COOLING MEASURES PROVIDED AND TYLENOL SUPPOSITORY ADMINISTERED,MONITORED.
[2019-12-29] VITALS: BP 147/97
[2019-12-29] MEDS: CEFEPIME 2 GM in IV D5W 100 ML IV SCH ×2 (01:07→13:41)
[2019-12-29] MEDS ORDERED: IPRATROPIUM NEB FS 0.5 MG/2.5 ML AMPUL.NEB ONE (02:28)
[2019-12-29] MEDS: IPRATROPIUM NEB FS 0.5 MG/2.5 ML AMPUL.NEB NEB SCH ×6 (02:31→23:17)
[2019-12-29 04:00] VITALS: BP 123/81
--- NOTE | 2019-12-29 04:34 | NUR ---
MS/RN NOTES PATIENT UNABLE TO RELAX. REQUIRING NEEDED MEDICATION TO CALM HIM DOWN AFTER INTERVENTION PROVIDED, KEEP PATIENT COMFORTABLE, REPOSITIONED.
--- NOTE | 2019-12-29 05:56 | NUR ---
RECEHECKED AT 99.9 DEFGREE.
[2019-12-29 05:57] VITALS: BP 123/81
--- NOTE | 2019-12-29 06:32 | NUR ---
315-1 TELE/RN NOTES ATTENDED TO ALL NEEDS,MONITORED FOR ANY CHANGES, KEPT COOL, BELOCKED, CALL LIGHTS WITHIN REACH. WILL ENDORSE TO AM RN FOR LYDIA.
[2019-12-29 08:13] LABS: BASOPHILS % (AUTO) 0.1 % (0.0-2.0); HEMATOCRIT 43 % (39-51); HEMOGLOBIN 14.2 g/dL (13.5-17.5); LYMPHOCYTES # (AUTO) 0.7 /CMM (0.8-4.8); LYMPHOCYTES % (AUTO) 9.2 % (20.0-44.0); MEAN CORPUSCULAR HGB CONC 33 g/dl (31.0-36.0); MEAN CORPUSCULAR VOLUME 90 fL (80-96); MONOCYTES # (AUTO) 0.9 /CMM (0.1-1.30); MONOCYTES % (AUTO) 11.5 % (2.0-12.0); NEUTROPHILS # (AUTO) 6.1 /CMM (1.8-8.9); NEUTROPHILS % (AUTO) 79.2 % (43.0-81.0); PLATELET COUNT (AUTO) 256 /CMM (150-450); RED BLOOD CELL COUNT(AUTO) 4.74 MIL/uL (4.5-6.0); WHITE BLOOD COUNT (AUTO) 7.7 K/uL (4.3-11.0)
[2019-12-29 08:25] LABS: CALCIUM, SERUM 8.6 mg/dL (8.5-10.1); CREATININE 0.9 mg/dL (0.6-1.3); MAGNESIUM 2.1 mg/dL (1.8-2.4); PHOSPHORUS 2.4 mg/dL (2.5-4.9); POTASSIUM 3.6 mmol/L (3.5-5.1)
--- NOTE | 2019-12-29 09:11 | NUR ---
SEASONAL RECRUITER NOTES-- VANCO TROUGH RESULTED 12. SPOKE W/ CARRIE IN PHARMACY TO CONTINUE VANCO 0.75GM.
[2019-12-29] MEDS: VALPROIC ACID 250 MG/5 ML UDC PO SCH ×2 (09:12→16:16)
[2019-12-29] MEDS: DOCUSATE SODIUM 100 MG CAPSULE PO SCH ×2 (09:12→16:16)
[2019-12-29] MEDS: CARBIDOPA/LEVODOPA 25/100 MG 1 UDTAB PO SCH ×4 (09:12→21:00)
[2019-12-29] MEDS: ENOXAPARIN SODIUM 40 MG/0.4 ML DISP.SYRIN SQ SCH (09:13)
[2019-12-29] MEDS: LISINOPRIL (20MG) 20 MG TABLET PO SCH (09:13)
[2019-12-29] MEDS: METOPROLOL TARTRATE 50 MG TABLET PO SCH (09:14)
[2019-12-29] MEDS: Z GUARD REMEDY 2 OZ OINT TP SCH (09:15)
[2019-12-29] MEDS: VANCOMYCIN 0.75 GM in IV D5W 250 ML IV SCH ×2 (10:16→20:55)
[2019-12-29] MEDS ORDERED: BARIUM SULFATE 148 GM SUSP.RECON PO ONE (10:40)
[2019-12-29] MEDS ORDERED: BARIUM SULFATE 240 ML ORAL.SUSP PO ONE (10:40)
[2019-12-29] MEDS ORDERED: K PHOS NEUTRAL 250 MG TABLET PO ONE (12:30)
[2019-12-29] MEDS ORDERED: Sodium Phosphate 15 MMOL in IV NS 0.9% 245 ML IV SCH (14:00)
[2019-12-29] MEDS: ACETAMINOPHEN 650 MG/SUPP.RECT RC PRN (16:30)
[2019-12-29 17:00] VITALS: BP 117/55
--- NOTE | 2019-12-29 18:05 | NUR ---
RN END OF SHIFT SUMMARY PT ALERT TO SELF, IS LETHARGIC. CARDIAC MONITORED, NSR. ON O2 @4L/MIN VIA NC SATURATING 98%. RESPIRATONS ARE EVEN AND UNLABORED, NOT IN ANY ACUTE DISTRESS NOTED. EPISODE OF ELEVATED TEMP 102.4. ADMINSITERED TYL PRN SUPOSITORY AND PROVIDED COOLING MEASURES. TEMP DOWN TO 98.8. ABDOMEN SOFT AND NONDISTENDED, BOWEL SOUNDS ARE PRESENT IN ALL 4 QUADRANTS UPON AUSCULTATION. CONDOM CATH IN PLACE, DRAINING YELLOW URINE. MEPILEX TO SACRAL AND BILATERAL HEELS. REPOSITONED Q2H. SITTER AT BEDSIDE. WILL MONITOR AND CONTINUE POC.
[2019-12-29 20:00] VITALS: BP 146/77
--- NOTE | 2019-12-29 20:30 | NUR ---
MSRN AFEBRILE NO TEMP THIS TIME. SITTER AT BEDSIDE. NON VERBAL. DUE MEDS ADMINISTERED.
[2019-12-29] MEDS: SENNOSIDES 8.6 MG TABLET PO SCH (21:53)
[2019-12-30] MEDS: CEFEPIME 2 GM in IV D5W 100 ML IV SCH ×2 (02:22→15:06)
[2019-12-30] MEDS: IPRATROPIUM NEB FS 0.5 MG/2.5 ML AMPUL.NEB NEB SCH ×6 (03:44→23:09)
[2019-12-30 04:39] VITALS: BP 147/78
--- NOTE | 2019-12-30 06:40 | NUR ---
MSRN REMAINS UNCHANGED. NO FEVER, NO RESPIRATORY DISTRESS..NONVERBAL
--- NOTE | 2019-12-30 07:30 | NUR ---
RN OPENING NOTES RECEIVED PATIENT IN BED RESTING. CONFUSED AND LETHARGIC, OPEN EYES. NOT IN ANY FORM OF DISTRESS. NO SOB. NO S/S OF PAIN OR DISCOMFORT. IV ACCESS INTACT AND PATENT. KEPT PATIENT SAFE AND COMFORTABLE. BED IN LOW/LOCKED POSITION, SIDERAILS UPX2, CALL LIGHT IN REACH .WILL CONT TO MONITOR ACCORDINGLY
[2019-12-30 08:00] VITALS: BP 115/57
[2019-12-30] MEDS: LISINOPRIL (20MG) 20 MG TABLET PO SCH (09:00)
[2019-12-30] MEDS: CARBIDOPA/LEVODOPA 25/100 MG 1 UDTAB PO SCH ×4 (09:00→21:00)
[2019-12-30] MEDS: DOCUSATE SODIUM 100 MG CAPSULE PO SCH ×2 (09:00→16:25)
[2019-12-30] MEDS: VALPROIC ACID 250 MG/5 ML UDC PO SCH ×2 (09:00→16:25)
[2019-12-30] MEDS: METOPROLOL TARTRATE 50 MG TABLET PO SCH (09:00)
[2019-12-30 09:02] LABS: CALCIUM, SERUM 8.8 mg/dL (8.5-10.1); CREATININE 0.8 mg/dL (0.6-1.3); PHOSPHORUS 2.4 mg/dL (2.5-4.9); POTASSIUM 3.7 mmol/L (3.5-5.1)
[2019-12-30] MEDS: VANCOMYCIN 0.75 GM in IV D5W 250 ML IV SCH ×2 (09:25→20:13)
[2019-12-30] MEDS: ENOXAPARIN SODIUM 40 MG/0.4 ML DISP.SYRIN SQ SCH (09:34)
[2019-12-30] MEDS: Z GUARD REMEDY 2 OZ OINT TP SCH (09:35)
[2019-12-30] MEDS ORDERED: Sodium Phosphate 15 MMOL in IV NS 0.9% 245 ML IV SCH (11:00)
[2019-12-30 16:00] VITALS: BP 129/64
--- NOTE | 2019-12-30 19:05 | NUR ---
MS RN OPENING NOTES: RECEIVED PATIENT IN BED, NON VERBAL, CONFUSED. HOB ELEVATED AT 40 DEGREES. WITH SITTER AT THE BEDSIDE.NPO, SITTER AWARE.ON AIR MATTRESS BED. BED IN LOWEST AND LOCKED POSITION. NO SOB NOTED. NOT IN PAIN.
--- NOTE | 2019-12-30 19:20 | NUR ---
RN CLOSING NOTES PATIENT IN STABLE CONDITION. ALL NEEDS ATTENDED AND PROVIDED. ALL DUE MEDS GIVEN ORDERED. KEPT PATIENT SAFE AND COMFORTABLE. BED IN LOW/LOCKED POSIITON. SIDERAILS UPX2. CALL LIGHT IN REACH. ENDORSED TO NIGHT RN FOR LYDIA.
--- NOTE | 2019-12-30 21:03 | NUR ---
REPORTS GIVEN TO JAYSHREE FOR CONTINUITY OF CARE.
[2019-12-30] MEDS: SENNOSIDES 8.6 MG TABLET PO SCH (21:27)
--- NOTE | 2019-12-30 21:30 | NUR ---
school cafeteria head cook initial notes got report from another for continuity of care and seen pt in bed resting with eyes closed but arouses to touch. tylenol suppositores given because pt had temp of 101.2 no signs of any distress noted. pt still on vancomycin infusing at this time. will continue monitoring. sitter at the bedside for pt safety.
[2019-12-30] MEDS: ACETAMINOPHEN 650 MG/SUPP.RECT RC PRN (21:32)
[2019-12-31] MEDS: CEFEPIME 2 GM in IV D5W 100 ML IV SCH ×2 (02:12→14:00)
[2019-12-31] MEDS: IPRATROPIUM NEB FS 0.5 MG/2.5 ML AMPUL.NEB NEB SCH ×6 (03:38→23:14)
[2019-12-31 07:08] LABS: CALCIUM, SERUM 8.6 mg/dL (8.5-10.1); CREATININE 0.9 mg/dL (0.6-1.3); PHOSPHORUS 2.5 mg/dL (2.5-4.9); POTASSIUM 2.9 mmol/L (3.5-5.1)
--- NOTE | 2019-12-31 07:23 | NUR ---
ms inverform machine operator closing notes pt resting comfortably in bed without any distress noted at this time. stable ger the night and slept well . all due meds given except the oral meds because pt still NPO . morning care done and skin care as well. heplock still patent and intact. kept him warm and comfortable at all times. sitter at the bedside for safety. Endorse to am nurse drew for continuity of care.
--- NOTE | 2019-12-31 07:54 | NUR ---
MS/RN OPENING NOTES RECEIVED PATIENT IN BED, HOB ELEVATED, ON OXYGEN VIA NC AT 4 LITER, RESPIRATIONS EVEN AND UNLABORED, SKIN WARM TO TOUCH,IV SITE RFA #22 SL INTACT, CONDOM CATHETER DRAINING YELLOW COLOR URINE, REQUIRE SUCTION AND RESPIRATORY TX NEEDED BY RT. BED LOCKED, CALL LIGHTS WITHIN REACH. ON NPO EXCEPT MED, ON ANTIBIOTIC THERAPY AND TO FOLLOW UP ANY CHANGES, VIDEO SWALLOW ORDER FOR BEATRIZ. RECEIVED ENDORSEMENT FROM AM RN FOR LYDIA,
[2019-12-31 08:00] VITALS: BP_SYST 138; BP_SYST 98; BP_DIAS 138; BP_DIAS 72
[2019-12-31] MEDS: VANCOMYCIN 0.75 GM in IV D5W 250 ML IV SCH ×2 (08:43→20:44)
[2019-12-31] MEDS: Z GUARD REMEDY 2 OZ OINT TP SCH (09:00)
[2019-12-31] MEDS: METOPROLOL TARTRATE 50 MG TABLET PO SCH (09:00)
[2019-12-31] MEDS: CARBIDOPA/LEVODOPA 25/100 MG 1 UDTAB PO SCH ×4 (09:00→20:44)
[2019-12-31] MEDS: DOCUSATE SODIUM 100 MG CAPSULE PO SCH ×2 (09:00→17:00)
[2019-12-31] MEDS: LISINOPRIL (20MG) 20 MG TABLET PO SCH (09:00)
[2019-12-31] MEDS: VALPROIC ACID 250 MG/5 ML UDC PO SCH ×2 (09:00→17:00)
[2019-12-31] MEDS: ENOXAPARIN SODIUM 40 MG/0.4 ML DISP.SYRIN SQ SCH (09:00)
[2019-12-31] MEDS: POTASSIUM CL. PREMIX PERIPHER. 50 ML IV SCH ×2 (09:47→10:28)
[2019-12-31] MEDS: Potassium Chloride 40 MEQ in IV D5/ 0.9% NACL 1,000 ML IV PRN (12:30)
[2019-12-31 16:00] VITALS: BP 139/84
[2019-12-31] MEDS: ACETAMINOPHEN 650 MG/SUPP.RECT RC PRN (16:31)
--- NOTE | 2019-12-31 16:40 | NUR ---
MS /RN NOTES PT NOTED WITH 100.7 TEMP COOLING MESURES DONE TYLENOL SUPP APPLIED ORDER WILL CONTINUE TO MONITOR
--- NOTE | 2019-12-31 18:43 | NUR ---
RECHECK BODY TEMPERATURE 98.3 DEG F.
--- NOTE | 2019-12-31 18:44 | NUR ---
LOCOMOTIVE ENGINEER DIESEL CLOSING NOTES PATIENT AWAKE NON VERBAL , EYES OPEN At TIMES, RESPONSIVE TO TACTILE STIMULI, ON 4 L VIA NC TOLERATING WELL O2 SAT 99%. NOTED WITH COUGH AND FEVER of 100.7 . RECTAL TYLENOL SUPP GIVEN ORDER. TYLENOL EFFECTIVE COOLING MEASURES EFFECTIVE TEMP 98.3. IV SITE TO RIGHT FA #22 G SL. ORDERS NOTED AND CARRIED OUT. CALL LIGHT KEPT WITHIN REACH, , REPOSITIONED Q 2HRS, OFFLOADED HEELS, ALL NEEDS ATTENDED AT THIS TIME, WILL CONTINUE TO MONITOR , ATTEND TO NEEDS AND ENDORSE TO NEXT SHIFT, ALL DUE MEDS GIVEN ORDER
--- NOTE | 2019-12-31 19:35 | NUR ---
MS LUCERO OPENING NOTES: RECEIVED PATIENT IN BED, ASLEEP, AROUSABLE, NON VERBAL, REACTS TO THE PAIN AND TOUCH. HOB ELEVATED AT 40 DEGREES AT ALL TIMES. WITH THE SITTER AT THE BEDSIDE. WITH CONDOM CATH INTACT. DRAINING A CLEAR LIGHT MARY COLOR URINE. SKIN REDNESS TO THE TOPS OF THE EARS HEALED, NO REDNESS. SACRAL REDNESS HEALED, NO REDNESS, STILL PROTECTED WITH THE MEPILEX FOAM DRESSING. WITH LEFT BUTTOCK BLANCHABLE REDNESS,PROTECTED WITH MEPILEX DRESSING, OFFLOADED, TURNED TO THE RIGHT SIDE. BILATERAL HEELS OFFLOADED. WITH O2 AT 4L/MIN NC. Addendum: 01/01/20 at 0458 by AMANDA CIFUENTES RN SACRAL AREA WITH REDNESS.
[2019-12-31 20:00] VITALS: BP 117/65
[2019-12-31] MEDS: SENNOSIDES 8.6 MG TABLET PO SCH (20:45)
[2020-01-01] MEDS: CEFEPIME 2 GM in IV D5W 100 ML IV SCH ×2 (01:47→13:57)
[2020-01-01] MEDS: Potassium Chloride 40 MEQ in IV D5/ 0.9% NACL 1,000 ML IV PRN ×2 (01:49→17:45)
[2020-01-01] MEDS: IPRATROPIUM NEB FS 0.5 MG/2.5 ML AMPUL.NEB NEB SCH ×5 (04:27→19:58)
--- NOTE | 2020-01-01 06:57 | NUR ---
MS RN CLOSING NOTES: PATIENT IN BED. NO SOB. NOT IN PAIN. WITH SITTER AT THE BEDSIDE. BED IN LOWEST AND LOCKED POSITION. VITALS STABLE. AFEBRILE. HOB ELEVATED AT ALL TIMES. TURNED Q2 HOURS. BILATERAL HEELS OFFLOADED. PHOTOS OF BOTH EARS TAKEN AND ATTACHED TO THE CHART.
[2020-01-01 07:35] LABS: CALCIUM, SERUM 8.3 mg/dL (8.5-10.1); CREATININE 0.7 mg/dL (0.6-1.3); POTASSIUM 3.7 mmol/L (3.5-5.1)
[2020-01-01 08:00] VITALS: BP 134/75
--- NOTE | 2020-01-01 08:00 | NUR ---
m/s racquet maker: initial assessment received pt in bed awake, alert to self only. sitter at bedside. reality orientation provided prn. condom cath in place and draining to gravity. no s/s of discomfort. will continue to monitor.
[2020-01-01] MEDS: CARBIDOPA/LEVODOPA 25/100 MG 1 UDTAB PO SCH ×2 (08:36→12:39)
[2020-01-01] MEDS: METOPROLOL TARTRATE 50 MG TABLET PO SCH (08:36)
[2020-01-01] MEDS: VALPROIC ACID 250 MG/5 ML UDC PO SCH (08:36)
[2020-01-01] MEDS: DOCUSATE SODIUM 100 MG CAPSULE PO SCH (08:36)
[2020-01-01] MEDS: LISINOPRIL (20MG) 20 MG TABLET PO SCH (08:36)
[2020-01-01] MEDS: ENOXAPARIN SODIUM 40 MG/0.4 ML DISP.SYRIN SQ SCH (08:42)
[2020-01-01] MEDS: Z GUARD REMEDY 2 OZ OINT TP SCH (08:48)
--- NOTE | 2020-01-01 09:00 | NUR ---
m/s engagement executive: notes all due meds not given due to npo diagnoses. plan for peg placement, awaiting for order. pt remains npo. sitter at bedside. will continue to monitor.
[2020-01-01] MEDS: VANCOMYCIN 0.75 GM in IV D5W 250 ML IV SCH (09:22)
--- NOTE | 2020-01-01 10:00 | NUR ---
m/s footwear stitcher: notes resting comfortable in bed with sitter at bedside. will continue to monitor.
--- NOTE | 2020-01-01 12:00 | NUR ---
m/s library technology instructor: notes pt remains npo. all meds held. hob elevated. sitter remains at bedside. will continue to monitor.
--- NOTE | 2020-01-01 14:45 | NUR ---
m/s meterman: md visit dr. dean here and ask md if the plan for peg placement still on, stated, "no, place an ngt and start feeding per rd recommendation." order carried out.
--- NOTE | 2020-01-01 15:30 | NUR ---
m/s ladle repairman: notes inserted ngt to right nostril, margie. well. stat chest x-ray ordered. sitter remains at bedside. will continue to monitor.
--- NOTE | 2020-01-01 15:45 | NUR ---
m/s personal driver: notes stat chest x-ray taken.
[2020-01-01 16:00] VITALS: BP 162/75
--- NOTE | 2020-01-01 16:09 | NUR ---
m/s cinder dump crane operator: notes chest x-ray resulted: Nasogastric tube appears appropriately positioned. ngt feeding ordered per rd recommendations.
--- NOTE | 2020-01-01 16:25 | NUR ---
m/s vice president of talent management: notes per central supply staff, there's no available feeding pump at this time. cn aware. called other units, but no available pump at this time.
[2020-01-01] MEDS ORDERED: JEVITY 1.2 CAL 1,000 ML BOTTLE GT PRN (16:30)
[2020-01-01] MEDS ORDERED: PHARMACY TO CHANGE PO MEDS TO GT/NG XX PRN (16:30)
--- NOTE | 2020-01-01 16:38 | NUR ---
m/s quality assurance monitor: notes able to locate one feeding pump, started ngt feeding of jevity 1.2 at 20ml/hr at this time. hob elevated. sitter remains at bedside.
[2020-01-01] MEDS ORDERED: hydrALAZINE HCL 25 MG TABLET NG PRN (16:46)
[2020-01-01] MEDS ORDERED: METOPROLOL TARTRATE 50 MG TABLET NG SCH (16:47)
[2020-01-01] MEDS ORDERED: MAGNESIUM HYDROXIDE 30 ML UDC NG PRN (16:47)
[2020-01-01] MEDS ORDERED: LISINOPRIL (20MG) 20 MG TABLET NG SCH (16:47)
[2020-01-01] MEDS ORDERED: SENNOSIDES 8.6 MG TABLET NG SCH (16:48)
[2020-01-01] MEDS: DOCUSATE SODIUM LIQ 100 MG/10 ML UDC NG SCH (17:40)
[2020-01-01] MEDS: VALPROIC ACID 250 MG/5 ML UDC NG SCH (17:40)
[2020-01-01] MEDS: CARBIDOPA/LEVODOPA 25/100 MG 1 UDTAB NG SCH ×2 (17:40→22:21)
--- NOTE | 2020-01-01 18:30 | NUR ---
m/s helpdesk administrator: notes resting comfortable in bed with hob elevated. ngt feeding of jevity at 20ml/hr running. needs attended. no distress noted.
--- NOTE | 2020-01-01 18:55 | NUR ---
m/s pipe fitter gas pipe: id f/u drea (cnp) here and informed me that she wants induce sputum to be collected, stated, "i ordered it 2 days ago, it wasn't done." will inform r.t. to collect sputum and will endorse accordingly.
--- NOTE | 2020-01-01 19:00 | NUR ---
m/s informatics nurse specialist: notes report given to cathryn (shari) for continuity of care.
--- NOTE | 2020-01-01 19:25 | NUR ---
MSRN EYES CLOSED, NGT WITH FEEDINGS AT 20CC/HR. IVF INFUSING WELL. HOB TO 35 DEGREES AT ALL TIMES. SITTER AT BEDSIDE, NEEDS CLOSE OBSERVATION. SUCTIONED NEEDED. NEED INDUCED SPUTUM PER ID. RT INFORMED.
--- NOTE | 2020-01-01 20:45 | NUR ---
jacin induced sputum done by rt.
[2020-01-01 20:50] VITALS: BP 137/67
[2020-01-01] MEDS: ACETAMINOPHEN 650 MG/20.3 ML UDC NG PRN (22:38)
[2020-01-02] MEDS: IPRATROPIUM NEB FS 0.5 MG/2.5 ML AMPUL.NEB NEB SCH ×5 (00:03→15:24)
--- NOTE | 2020-01-02 00:19 | NUR ---
MSRN AFEBRILE AT THIS TIME POST TYLENOL. OCC PRODUCTIVE COUGH. HHN TREATMENT Q 4 ORDERED. KEPT COMFORTABLE
[2020-01-02] MEDS: CEFEPIME 2 GM in IV D5W 100 ML IV SCH ×2 (02:19→15:57)
--- NOTE | 2020-01-02 05:27 | NUR ---
MSRN REMAINS UNCHANGED, AFEBRILE. HHN TREATMENT ON PROGRESS.
--- NOTE | 2020-01-02 06:50 | NUR ---
MSRN NGT FEEDINGS INCREASED TO 30CC/HR. NO RESIDUALS. TOLERATED WELL.
[2020-01-02 07:29] LABS: CALCIUM, SERUM 8.5 mg/dL (8.5-10.1); CREATININE 0.7 mg/dL (0.6-1.3); MAGNESIUM 2.3 mg/dL (1.8-2.4); POTASSIUM 3.7 mmol/L (3.5-5.1)
[2020-01-02 07:39] LABS: BASOPHILS % (AUTO) 0.4 % (0.0-2.0); EOSINOPHILS % (AUTO) 1.1 % (0.0-6.0); HEMATOCRIT 34 % (39-51); HEMOGLOBIN 11.3 g/dL (13.5-17.5); LYMPHOCYTES # (AUTO) 1.1 /CMM (0.8-4.8); LYMPHOCYTES % (AUTO) 16.1 % (20.0-44.0); MEAN CORPUSCULAR HGB CONC 33 g/dl (31.0-36.0); MEAN CORPUSCULAR VOLUME 90 fL (80-96); MONOCYTES # (AUTO) 0.9 /CMM (0.1-1.30); MONOCYTES % (AUTO) 12.9 % (2.0-12.0); NEUTROPHILS # (AUTO) 4.8 /CMM (1.8-8.9); NEUTROPHILS % (AUTO) 69.5 % (43.0-81.0); PLATELET COUNT (AUTO) 239 /CMM (150-450); RED BLOOD CELL COUNT(AUTO) 3.81 MIL/uL (4.5-6.0); WHITE BLOOD COUNT (AUTO) 6.8 K/uL (4.3-11.0)
[2020-01-02 08:00] VITALS: BP 183/90
--- NOTE | 2020-01-02 08:00 | NUR ---
m/s supervisor concrete stone finishing: initial assessment received pt in bed awake, alert to self only. sitter at bedside. reality orientation provided prn. condom cath in place and draining to gravity. ngt feeding increase to 30ml/hr via right nostril. no s/s of discomfort. will continue to monitor
[2020-01-02] MEDS ORDERED: NEUTRA PHOS 1 POWD.PACKET PO ONE (08:30)
[2020-01-02] MEDS: DOCUSATE SODIUM LIQ 100 MG/10 ML UDC NG SCH ×2 (08:45→16:54)
[2020-01-02] MEDS: VALPROIC ACID 250 MG/5 ML UDC NG SCH ×2 (08:46→16:54)
[2020-01-02] MEDS: ENOXAPARIN SODIUM 40 MG/0.4 ML DISP.SYRIN SQ SCH (08:50)
[2020-01-02] MEDS: CARBIDOPA/LEVODOPA 25/100 MG 1 UDTAB NG SCH ×3 (08:51→16:54)
[2020-01-02] MEDS: POTASSIUM PHOSPHATE MM 7.5 MMOL in IV NS 0.9% 100 ML IV SCH ×2 (09:42→12:45)
[2020-01-02 10:00] VITALS: BP 156/86
--- NOTE | 2020-01-02 10:00 | NUR ---
m/s metal burnisher: notes am care rendered. kept clean and dry. good pericare rendered. sitter remains at bedside. pt tolerating ngt feeding. hob elevated. will continue to monitor.
--- NOTE | 2020-01-02 12:00 | NUR ---
m/s clinical biochemical geneticist: notes ngt feeding increase to 35ml/hr with no residual obtained. hob elevated. sitter remains at bedside.
[2020-01-02] MEDS: ACETAMINOPHEN 650 MG/20.3 ML UDC NG PRN (13:20)
[2020-01-02] MEDS: Z GUARD REMEDY 2 OZ OINT TP SCH (13:20)
--- NOTE | 2020-01-02 13:30 | NUR ---
m/s stencil cutter machine: notes evelia (salvatore) called and informed cn that pt is for discharge to [place] today. salvatore making arrangement.
--- NOTE | 2020-01-02 14:00 | NUR ---
m/s oven stripper: notes ngt feeding increase to 40ml/hr. hob elevated. sitter at bedside.
--- NOTE | 2020-01-02 14:25 | NUR ---
m/s building services engineer: notes evelia (cm) still checking cesar re: ngt feeding per cn.
--- NOTE | 2020-01-02 14:55 | NUR ---
m/s chief operator hydroformer: notes received telephone order to discharge pt to [facility] and continue home medications. order read back and carried out and acknowledged. case management still following.
[2020-01-02 16:00] VITALS: BP 139/80
--- NOTE | 2020-01-02 16:00 | NUR ---
m/s small animal caretaker: notes f/u made to evelia (salvatore) and informed me that pt is going today at [address] dean already spoken to pt's son and aware as stated. dr. dean is also following the pt at [place] per .
--- NOTE | 2020-01-02 16:00 | NUR ---
m/s technical sales advisor: notes increase ngt feeding to 50ml/hr, hob elevated. sitter remains at bedside. for d'c today.
[2020-01-02] MEDS: Potassium Chloride 40 MEQ in IV D5/ 0.9% NACL 1,000 ML IV PRN (16:20)
--- NOTE | 2020-01-02 16:20 | NUR ---
m/s hoisting engine operator: notes called [facility], spoke to taylor (rn) and report given for continuity of care, eta [phone].
--- NOTE | 2020-01-02 17:30 | NUR ---
m/s bernard: notes [facility]'s rn supervisor metal cans called and wants report given to her due to her nurse is new. report given to rn supervisor metal cans for continuity of care. eta at [phone]. Addendum: 01/02/20 at 1823 by CATE MORATAYA LVN rn supervisor metal cans wants pt to leave with condom cath and h/l.
--- NOTE | 2020-01-02 18:00 | NUR ---
m/s tumbler plater: notes goal met increase ngt feeding to 55ml/hr. needs attended. no distress noted. pt stable for discharge. will continue to monitor.
--- NOTE | 2020-01-02 18:14 | NUR ---
m/s scalder: notes ambulance here and report given to one of the crew. ngt feeding stopped and flushed with 30ml of water. pt to go with h/l and ngt to right nostril. d'c papers handed to crew.
--- NOTE | 2020-01-02 18:22 | NUR ---
m/s squeegee operator: discharged discharge to [facility] via ambulance accompanied by 2 crew in stable condition.
== END 2020-01-02 18:25 | disposition short-term general hospital (02) | DRG 177 ==
LOC: ER 16:14 → TELE 20:19 → MED 12-30 03:06
PROVIDERS: ADMIT Internal Medicine Nephrology; ATTEND Internal Medicine Nephrology
DX: J69.0 Pneumonitis due to inhalation of food and vomit (principal); G92 Toxic encephalopathy; J96.01 Acute respiratory failure with hypoxia; N39.0 Urinary tract infection, site not specified; E86.0 Dehydration; G20 Parkinson's disease; F02.80 Dementia in other diseases classified elsewhere, unspecified severity, without behavioral disturbance, psychotic disturbance, mood disturbance, and anxiety; N32.81 Overactive bladder; Z88.4 Allergy status to anesthetic agent; I49.9 Cardiac arrhythmia, unspecified; Z79.01 Long term (current) use of anticoagulants; Z79.899 Other long term (current) drug therapy; Z79.51 Long term (current) use of inhaled steroids; I10 Essential (primary) hypertension; B96.1 Klebsiella pneumoniae [K. pneumoniae] as the cause of diseases classified elsewhere; R13.10 Dysphagia, unspecified; Y95 Nosocomial condition; E83.39 Other disorders of phosphorus metabolism
CPT/HCPCS: 36415; 36600; 71045-TC; 74230-TC; 80048-TC; 80076-TC; 80164-TC; 80202-TC; 81000-TC; 83605-TC; 83735-TC; 84100-TC; 84484-TC; 85025-TC; 85730-TC; 87040-TC; 87070-TC; 87081-TC; 87086-TC; 87186-TC; 92526; 92611-TC; 93307-TC; 94799-TC; 97530-TC; A4349; A9563; G0378; J0692; J1650; J2060; J3370; J3480; J3490; J7030; J7042; J7050; J7060